=== PATIENT | male | born 1950 | race Caucasian/White ===

== ENCOUNTER 2018-03-08 02:48 | Inpatient (IN) ==
[2018-03-08] MEDS ORDERED: Haloperidol Lactate 5 MG/ML VIAL IVP ONE ×3 (05:39→23:17)
--- NOTE | 2018-03-08 05:41 | Internal Med History&Physical ---
<Shiva Paul - Last Filed: 03/08/18 06:38> Date of Encounter: 03/08/18 Time of Encounter: 05:38 Internal Medicine - H&P: HPI Chief complaint: Altered mental status, sepsis Admitted From: Hospital to Hospital Transfer Plans for Post Hospital Care: Transfer Long-Term Facility History of present illness: Mr. Winston is a 67 year old male with past medical history of COPD, AAA, CAD, DJD, aortic stenosis (s/p TAVR). Patient arrived to [facility] emergency department yesterday via EMS. Patient was accompanied by family at [facility] emergency department. Per [facility] records, family stated that patient had increased confusion since the day prior, has eaten in 24 hours. He fell on the floor on the night of arrival with reported multiple skin tears to bilateral upper extremities. He was confused and very aggressive with staff. Patient's brother Girish was present at bedside after arrival to [facility]. He states that the patient normally does live with his . However, patient's has recently been hospitalized for the past several days here at [place], so patient has been staying with his brother Girish. He states that at baseline, the patient is alert and oriented x3 and is self-sufficient in his ADLs. However, over the past 48 hours, he has been acting very confused, altered, and has not been himself. He was found down earlier in the evening by his brother. Dates that he was down for short period of time, but exact duration is unknown. He is unsure but does not think that the patient hit his head when he was found down. Review of systems unobtainable due to patient's altered mental status. Vitals reported at [facility] were as follows: temperature 97.2, respirations 18, blood pressure 118/72, heart rate 80, oxygen saturation 96% on room air Labs and imaging at [facility] emergency department were as follows: CBC showed WBC of 13.6 BMP showed sodium 123, chloride 87, creatinine 1.03 AST 54 ALT to 36 ALP 145 CPK 739 CKMB: 12 troponin 0.128 lactic acid 2.[address] of the head without contrast showed "no evidence of intracranial abnormality, small amount of fluid in mastoid air cells possibly representing mastoiditis". CT of the lumbar spine showed "no acute fracture dislocation, status post laminectomy at L5 without visualized complication, no pre-vertebral soft tissue swelling to suggest acute soft tissue injury" Blood cultures were collected at [facility] emergency department At [facility] emergency department, he received 3 L boluses of normal saline, 2.5 mg total of Ativan, one dose Zosyn, one dose Rocephin, one dose vancomycin, one dose Zofran. Vitals after arriving to [place]: temperature 98.5, pulse 100, respirations 20, blood pressure 152/77, oxygen saturation 91% on room air Past Med Surg Social Fam HX - Past Medical History Medical history: COPD, hyperlipidemia, hypertension, myocardial infarction, valvular heart disease Additional medical history: BLACK LUNG Psychiatric history: bipolar - Past Surgical History Surgical History: angioplasty/stent, herniorrhaphy, knee replacement Additional surgical history: AAA. L shoulder. b/l knees - Social History Smoking Status: Former smoker Smokeless Tobacco Status: No Alcohol use: occasionally Drug use: none - Family History Mother Living Status: Father Living Status: Hx Family Respiratory Disorders: Yes Internal Medicine - H&P: Meds Albuterol Neb [Proventil Neb] 2.5 mg IH QID PRN 10/14/15 [History] Albuterol Sulfate [Albuterol Inhaler] 2 puff IH QID PRN 10/14/15 [History] Aspirin Enteric Coated [Aspirin EC] 81 mg PO DAILY 10/14/15 [History] BuPROPion [Wellbutrin] 75 mg PO DAILY 10/14/15 [History] Budesonide/Formoterol 80/4.5 [Symbicort 80/4.5] 1 puff IH BIDR 10/14/15 [History] Metoprolol XL (24 HR) Succ [Toprol Xl] 0.5 tab PO DAILY 10/14/15 [History] Nitroglycerin [Nitrostat] 0.4 mg SL AD PRN 10/14/15 [History] Omeprazole [PriLOSEC] 20 mg PO DAILY 10/14/15 [History] Simvastatin [Zocor] 20 mg PO HS 10/14/15 [History] Tiotropium [Spiriva] 18 mcg IH DAILY 10/14/15 [History] predniSONE [PredniSONE] 5 mg PO DAILY 10/14/15 [History] Hydrochlorothiazide [Microzide] 12.5 mg PO DAILY 09/05/17 [History] Meloxicam [Mobic] 7.5 mg PO DAILY 09/05/17 [History] Roflumilast [Daliresp] 500 mcg PO DAILY 09/05/17 [History] Allergy/AdvReac Type Severity Reaction Status Date / Time No Known Allergies Allergy Verified 11/02/17 23:08 ROS unobtainable: due to mental status All Systems PM: A 10-system review of systems was performed and is negative for pertinent findings except as documented above in the HPI. - Constitutional General appearance: Present: A&O X 0, no acute distress, underweight. Absent: severe distress, answers questions appropriately Exam: Patient laying in the bed sleeping, appears to be in no acute distress. He is overall disheveled looking, very thin, appears to have very dry skin. - Head Head exam: Present: atraumatic, normocephalic - ENT ENT exam: Present: mucous membranes dry Additional comments: Right ear appear to have a significant amount of cerumen - Respiratory Respiratory exam: Present: decreased breath sounds. Absent: rales, respiratory distress, wheezes, tachypnea - Cardiovascular Cardiovascular exam: Present: RRR, +S1, +S2. Absent: systolic murmur, tachycardia - GI/Abdominal GI/Abdominal exam: Present: diminished bowel sounds, soft. Absent: guarding, tenderness - Extremities Exam Extremities exam: Absent: cyanotic, mottling, pedal edema Additional comments: Extremities overall appear to have dry skin, redness present at the bottom of the feet. Normal capillary refill. - Neurological Exam Additional comments: Alert and oriented x0. no acute distress. appears to be resting comfortably. - Skin Skin exam: Present: dry, intact, pallor. Absent: cyanosis Internal Med - H&P Results - Labs CBC & Chem 7: 03/08/18 06:12 - Assessment and plan (1) Encephalopathy Current Visit: Yes Status: Acute Assessment and plan: 67-year-old male presents as a transfer from [facility] emergency department due to altered mental status. History obtained from his brother, who states that patient is alert and oriented x3 at baseline, normally lives with his , does not require any help with ADLs. Over the past 48 hours, patient has become increasingly confused, agitated, combative. Of note, patient's is hospitalized here at [place]. Alcohol levels at [facility] were unremarkable. Head CT at [facility] unremarkable Etiology unclear at this time. could be due to severe sepsis vs. metabolic (hyponatremia) vs. iatrogenic. Plan: Tineo, B12, Acetaminophen, salicylate, UDS check troponin levels. hold HCTZ in setting of hyponatremia reconcile home meds when verified. (2) Severe sepsis Current Visit: Yes Status: Acute Assessment and plan: HR 100, WBC at [facility]: 13.6, lactic acid 2.6 at [facility]. Etiology Unclear at this time. specifically, There is concern for Endocarditis. patient has Hx of with TAVR in 10/2017. He became septic a few weeks later and had to be on IV antibiotics. This history was obtained from his brother girish. Patient received 3 fluid boluses, vancomycin, Zosyn, Rocephin at [facility] emergency department. Plan: repeat lactic acid blood cultures x2, urinalysis with culture pending EV echocardiogram Rapid flu swab check CT chest vancomycin, zosyn day 1 (3) Hyponatremia Current Visit: Yes Status: Acute Assessment and plan: Sodium at [facility] was noted to be 123- Euvolemic hyponatremia Our records indicate that his last sodium was 133 in 10/2017. Etiology unclear at this time. Differentials include SIADH, malignancy, HCTZ use, psychogenic polidipsia, etc. Plan: urine Na, urine osm pending CT chest pending to rule out malignancy check ionized calcium to check for hypercalcemia of malignancy (4) Elevated troponin Current Visit: No Status: Acute Assessment and plan: Troponin at [facility] was 0.128. Patient does not report chest pain, but his history is unreliable due to acute encephalopathy. He does have history of coronary artery disease. Plan: trend troponins q6H EKG EV echocardiogram pending (5) Coronary artery disease Current Visit: No Status: Chronic Assessment and plan: Restart home medications once verified Qualifiers: Coronary Disease-Associated Artery/Lesion type: cheesh-na artery [place] vs. transplanted heart: cheesh-na heart Associated angina: without angina Qualified Code(s): I25.10 - Atherosclerotic heart disease of cheesh-na coronary artery without angina pectoris (6) History of abdominal aortic aneurysm (AAA) Current Visit: Yes Status: Chronic (7) Status post transcatheter aortic valve replacement Current Visit: Yes Status: Chronic (8) DVT prophylaxis Current Visit: No Status: Acute Assessment and plan: Heparin SQ - Time Spent With Patient Total time spent is greater than 50% in coordination of care (as documented) at patient's floor/unit and/or counseling patient: <Thong Neff - Last Filed: 03/08/18 07:07> Date of Encounter: 03/08/18 Time of Encounter: 06:20 ROS unobtainable: due to mental status - Constitutional Vitals: Temp Pulse Resp BP Pulse Ox 98.5 F 100 20 152/77 91 03/08/18 05:53 03/08/18 05:53 03/08/18 05:53 03/08/18 05:53 03/08/18 05:53 General appearance: Present: A&O X 0 Exam: sleeping; moving about, responds to painful/loud stimuli; confused - Eye Eye exam: Present: PERRL. Absent: scleral icterus - ENT ENT exam: Present: mucous membranes dry - Neck Neck exam general surgery: Present: full ROM, supple. Absent: lymphadenopathy, tenderness, nuchal rigidity, thyromegaly - Respiratory Respiratory exam: Present: prolonged expiratory phase, rhonchi. Absent: decreased breath sounds, rales, wheezes - Cardiovascular Cardiovascular exam: Present: distant heart sounds, RRR, +S1, +S2. Absent: diastolic murmur, systolic murmur - GI/Abdominal GI/Abdominal exam: Present: diminished bowel sounds, soft. Absent: hepatomegaly, splenomegaly - Extremities Exam Extremities exam: Present: warm, radial pulses palpable and symmetrical. Absent: mottling, pedal edema, tenderness - Back Exam Back exam: Absent: CVA tenderness (L), CVA tenderness (R) - Neurological Exam Neurological exam: Present: altered, no focal deficits (no gross deficits; moves all four extremities) - Skin Skin exam: Present: dry, intact, warm Additional comments: multiple scrape wounds/abrasions on his arms Internal Med - H&P Results - Labs CBC & Chem 7: 03/08/18 06:12 03/08/18 06:12 Labs: Short CBC 03/08/18 Range/Units 06:12 WBC 9.9 (4.3-11.1) K/mcL Hgb 12.4 L (12.9-16.9) g/dL Hct 36.6 L (37.5-50.1) % Plt Count 303 (140-400) K/mcL Neutrophils # 7.6 (1.6-8.9) K/mcL BMP 03/08/18 06:12 Sodium 125 L Potassium 4.1 Chloride 96 L Carbon Dioxide 18 L BUN 18 Creatinine 0.73 Glucose 90 Calcium 8.3 L Cardiac Enzymes 03/08/18 Range/Units 06:12 Troponin I 0.38 H* (< 0.04) ng/mL Liver Function 03/08/18 Range/Units 06:12 Total Bilirubin 0.6 (0.3-1.0) mg/dL AST 39 (13-39) Units/L ALT 21 (7-52) Units/L Alkaline Phosphatase 96 (34-104) Units/L Albumin 3.4 L (3.5-5.7) g/dL - Time Spent With Patient Total time spent is greater than 50% in coordination of care (as documented) at patient's floor/unit and/or counseling patient: - Attending Attestation I discussed the patient [place], past medical history, lab data and imaging studies at [facility], and plan of care with Dr. Paul. I then saw, examined patient, and met with patient's brother. Prior to 2 days ago, patient was at his baseline cognitive state and functioning normally. However, over last 2 days, he has had a rapid decline as detailed above. Based upon limited history, lab data and imaging data from [facility], and then my discussions with the patient's brother, I am concerned about sepsis in addition to possible endocarditis. His brother tells me that he had TAVR procedure performed this summer at [facility] and then later developed sepsis about a week later. He was treated with IV antibiotics for about 1 month thereafter. He now has clinical findings concerning for sepsis as well as altered mental status. I agree with the blood cultures and antibiotics chosen thus far. I recommend surface echocardiogram with likely TRACY thereafter especially if there is a positive blood culture. Further workup and treatment will depend upon his clinical course and response to care. Other than my comments above and noted exam findings, I agree with Dr. Paul's assessment and plan.
[2018-03-08] MEDS ORDERED: Haloperidol Lactate 5 MG/ML VIAL ONE (05:42)
[2018-03-08] MEDS ORDERED: Naloxone 0.4 MG/ML INJ IVP PRN (05:54)
[2018-03-08 06:30] LABS: Basophils % 0.4 %; Eosinophils # 0.1 K/mcL (0.0-0.6); Eosinophils % 0.6 %; Hematocrit 36.6 % (37.5-50.1); Hemoglobin 12.4 g/dL (12.9-16.9); Immature Granulocytes % 1.1 % (0-4); Lymphocytes # 0.9 K/mcL (0.6-4.6); Lymphocytes % 9.4 %; Mean Corpuscular HGB Conc 33.9 g/dL (31.6-35.5); Mean Corpuscular Hemoglobin 28.4 pg (28.0-33.3); Mean Corpuscular Volume 83.9 fL (83.0-100.0); Mean Platelet Volume 8.2 fL (9.4-12.4); Monocytes # 1.1 K/mcL (0.0-1.3); Monocytes % 11.4 %; Neutrophils # 7.6 K/mcL (1.6-8.9); Platelet Count 303 K/mcL (140-400); Red Blood Count 4.36 M/mcL (4.19-5.50); Red Cell Distribution Width 13.2 % (11.5-14.5); Segmented Neutrophils % 77.1 %
[2018-03-08 06:46] LABS: Acetaminophen < 10 mcg/mL (10-20); Salicylate < 2.5 mg/dL (15.0-30.0)
[2018-03-08 06:49] LABS: Alanine Aminotransferase 21 Units/L (7-52); Albumin 3.4 g/dL (3.5-5.7); Albumin/Globulin Ratio 1.2 (1.1-2.2); Alkaline Phosphatase 96 Units/L (34-104); Aspartate Amino Transferase 39 Units/L (13-39); BUN/Creatinine Ratio 25 (6-26); Bilirubin,Total 0.6 mg/dL (0.3-1.0); Blood Urea Nitrogen 18 mg/dL (8-23); Calcium 8.3 mg/dL (8.6-10.3); Carbon Dioxide 18 mEq/L (23-29); Chloride 96 mEq/L (98-107); Globulin 2.8 g/dL (2.4-3.5); Glucose 90 mg/dL (70-105); Magnesium 1.9 mg/dL (1.6-2.6); Osmolality,Calculated 261 (280-300); Phosphorous 2.3 mg/dL (2.7-4.5); Potassium 4.1 mEq/L (3.5-5.1); Sodium 125 mEq/L (136-145); Total Protein 6.2 g/dL (6.4-8.9); eGFR For Non-African Americans > 60 (> 60)
[2018-03-08 06:53] LABS: Troponin I 0.38 ng/mL (< 0.04)
[2018-03-08] MEDS: *HR* Heparin 5,000 UNIT/ML VIAL SQ SCH ×2 (06:58→17:37)
[2018-03-08] MEDS ORDERED: Vancomycin 1 EACH in 0.9 % Sodium Chloride 250 ML IVPB SCH (07:00)
[2018-03-08 07:13] LABS: Folate 15.3 ng/mL (3.0-16.0)
--- NOTE | 2018-03-08 09:35 | Internal Med Progress Note ---
Hospitalist Progress Note - Encounter Date of Encounter: 03/08/18 Time of Encounter: 09:15 - Subjective Interval History: Patient seen and examined this morning. Admitted for AMS. Still altered and agitated. not able to provide and history or complains. Afebrile, tachy. - Exam Vitals: Temp Pulse Resp BP Pulse Ox 98.5 F 100 20 152/77 91 03/08/18 05:53 03/08/18 05:53 03/08/18 05:53 03/08/18 05:53 03/08/18 05:53 Exam: General: In mild distress. Altered and confused. Slightly agitated. Respiratory exam: CTAB. no accessory muscle use, rales, rhonchi, wheezes Cardiovascular exam: Tachycardic, +S1, +S2. no murmur, gallop, rubs. GI/Abdominal exam: Non-tender, Non-distended, normal bowel sounds, soft, no p eritoneal signs. Extremities exam: full ROM, no pedal edema, pulses palpable in b/l lower extremities. no calf tenderness. Rt foot is red and warm, maximally near toes. Does not appear to cause pain but patient is altered. No joint swelling/effusion appreciated. Neurological exam: CN II-XII intact, AO X3, no focal deficits. no pronater drift, facial droop, speech deficit Skin exam: No skin rash, ulcer, purpura or ecchymosis. s - Summary of Assessment and Plan Summary of Assessment and Plan: Encephalopathy - Alcohol levels at [facility] were unremarkable. - Head CT at unremarkable - Possibly from sepsis vs. metabolic - [place], B12 normal. Acetaminophen, salicylate negative. f/u UDS - troponin levels elevated at 0.38. trend troponin. BP stable. - hold HCTZ in setting of hyponatremia - will reconcile home meds when verified. Severe sepsis - s/p 3 Lit - Etiology Unclear at this time. concern for Endocarditis. Also possible cellulitis vs septic arthitis. Will get CT of Rt foot. - c/w vancomycin, Zosyn. - lactic acid 1. Previously 2.6 - f/u blood cultures x2, urinalysis with culture pending - f/u echocardiogram - f/u Rapid flu swab and CT chest Hyponatremia - Possibly HCTZ use or hyovolemia - f/u Urine Na, urine osm pending. Will place patel an obtain sample - CT chest pending to rule out malignancy Elevated troponin - Troponin at [facility] was 0.128. 0.38 this morning. - could not offer complains. h/o CAD - EKG without any ischemic changes - f/u EV echocardiogram pending Coronary artery disease - Restart home medications once verified - Time Spent with Patient Total time spent is greater than 50% in coordination of care (as documented) at patient's floor/unit and/or counseling patient: Internal Medicine: Result - Labs CBC & Chem 7: 03/08/18 06:12 03/08/18 06:12 Labs: Short CBC 03/08/18 Range/Units 06:12 WBC 9.9 (4.3-11.1) K/mcL Hgb 12.4 L (12.9-16.9) g/dL Hct 36.6 L (37.5-50.1) % Plt Count 303 (140-400) K/mcL Neutrophils # 7.6 (1.6-8.9) K/mcL BMP 03/08/18 06:12 Sodium 125 L Potassium 4.1 Chloride 96 L Carbon Dioxide 18 L BUN 18 Creatinine 0.73 Glucose 90 Calcium 8.3 L Cardiac Enzymes 03/08/18 Range/Units 06:12 Troponin I 0.38 H* (< 0.04) ng/mL Liver Function 03/08/18 Range/Units 06:12 Total Bilirubin 0.6 (0.3-1.0) mg/dL AST 39 (13-39) Units/L ALT 21 (7-52) Units/L Alkaline Phosphatase 96 (34-104) Units/L Albumin 3.4 L (3.5-5.7) g/dL Consult Discharge Plan - Plan [facility]Primary Care Provider[facility] -
[2018-03-08] MEDS ORDERED: 0.9 % Sodium Chloride 500 ML IVC ONE (09:42)
[2018-03-08] MEDS ORDERED: Ketorolac 30 MG/ML VIAL IM ONE (09:43)
[2018-03-08] MEDS ORDERED: Ketorolac 30 MG/ML VIAL IVP ONE (10:01)
[2018-03-08] MEDS: Piperacillin/Tazobactam 3.375 GM in 0.9 % Sodium Chloride Mini Bag 100 ML IVPB SCH ×3 (10:05→23:32)
[2018-03-08 11:27] LABS: Bilirubin,Urine Negative (Negative); Blood,Urine Trace (Negative); Clarity,Urine Clear (Clear); Color,Urine Yellow (Yellow); Glucose,Urine (UA) Normal (Normal); Ketones,Urine 80 mg/dL (Negative); Leukocyte Esterase,Urine Negative (Negative); Nitrite,Urine Negative (Negative); PH,Urine 5.5 pH Units (5.0-8.0); Protein,Urine Negative (Neg-Trace); Specific Gravity,Urine 1.015 (1.010-1.025); Urobilinogen,Urine Normal (Normal)
[2018-03-08 11:35] LABS: Amphetamine Screen,Urine Negative ng/mL (Cutoff=1000); Barbiturate Screen,Urine Negative ng/mL (Cutoff=200); Benzodiazepines Screen,Urine Negative ng/mL (Cutoff=200); Cannabinoid Screen,Urine Negative ng/mL (Cutoff = 50); Cocaine Screen,Urine Negative ng/mL (Cutoff= 300); Opiate Screen,Urine Negative ng/mL (Cutoff=300); Phencyclidine Screen,Urine Negative ng/mL (Cutoff=25)
[2018-03-08 11:46] LABS: Amorphous Sediment,Urine Few (Few); WBC,Urine 0-3 per hpf (0-3)
[2018-03-08] MEDS: 0.9 % Sodium Chloride 1,000 ML IVC SCH ×2 (11:48→23:31)
[2018-03-08] MEDS ORDERED: Haloperidol Lactate 5 MG/ML VIAL IM ONE (11:57)
[2018-03-08] MEDS ORDERED: *HR* Dextrose 50 % in Water (Syg) 50 ML SYRINGE IVP ONE (12:20)
--- NOTE | 2018-03-08 14:33 | Cardiology Consult Note ---
<AlejandroPujajake Romero - Last Filed: 03/08/18 14:30> Date of Encounter: 03/08/18 Time of Encounter: 14:30 Assessment and Plan (1) Elevated troponin Current Visit: No Status: Acute Per cardiology: -Troponins flat and adynamic in the setting of sepsis, encephalopathy. -No acute ischemic ECG changes. -No chest pain reported. -TTE pending. -[facility] 08/2017 with patent stents, otherwise mild disease. -[facility] 05/2017 with LVEF 60-65%, ayssemetric septal hypertrophy, mild DD, probable severe , no segmental wall motion abnormalities. -Troponins demand ischemia in the setting of above. -If LVEF remains preserved on repeat TTE, no further cardiac testing warranted. -When able to take oral medications, recommend restarting patient's ASA, statin, BB. (2) Coronary artery disease Current Visit: No Status: Chronic Per cardiology: -Known CAD s/p previous PCI. -[facility] 08/2017 with patent stents, otherwise mild CAD. -See elevated troponin as above. Qualifiers: Coronary Disease-Associated Artery/Lesion type: [place] artery [place] vs. transplanted heart: [place] heart Associated angina: without angina Qualified Code(s): I25.10 - Atherosclerotic heart disease of [place] coronary artery without angina pectoris (3) Status post transcatheter aortic valve replacement Current Visit: Yes Status: Chronic Per cardiology -Recent TAVR 10/2017 [place]. -TTE pending. Discussion w patient/family: The assessment and plan as outlined above was discussed with the patient who expressed understanding and agreement. All questions were answered. Thank you for involving us in the care of your patient. Please call with any questions. Discussed and reviewed with History of Present Illness Consult date: 03/08/18 Requesting physician: Shiva Paul Consult reason: elevated troponin Chief complaint: altered mental status History of present illness: Mr. Winston is a 67 year old male with a relevant past medical history of COPD, CAD s/p previous PCI, Aortic stenosis s/p TAVR, AAA who presented to [facility] with complaints of confusion per family. Of note, patient is lethargic in bed, not answering questions. Majority of HPI obtained from medical records. Per notes, family noticed increased confusion. No reported chest pain. Past Med Surg Social Fam HX - Past Medical History Attestation: Yes The following information was validated with the patient. Source: old records reviewed Medical history: COPD, hyperlipidemia, hypertension, myocardial infarction, valvular heart disease Additional medical history: BLACK LUNG Psychiatric history: bipolar - Past Surgical History Surgical History: angioplasty/stent, herniorrhaphy, knee replacement Additional surgical history: AAA. L shoulder. b/l knees - Social History Smoking Status: Former smoker Smokeless Tobacco Status: No Alcohol use: occasionally Drug use: none - Family History Mother Living Status: Father Living Status: Hx Family Respiratory Disorders: Yes Medications and Allergies Albuterol Sulfate [Albuterol Inhaler] 2 puff IH QID PRN 10/14/15 [History] Aspirin Enteric Coated [Aspirin EC] 81 mg PO DAILY 10/14/15 [History] Omeprazole [PriLOSEC] 20 mg PO DAILY 10/14/15 [History] Simvastatin [Zocor] 20 mg PO HS 10/14/15 [History] Meloxicam [Mobic] 7.5 mg PO DAILY 09/05/17 [History] Roflumilast [Daliresp] 500 mcg PO DAILY 09/05/17 [History] Budesonide/Formoterol 160/4.5 [Symbicort 160/4.5] 2 puff IH BIDR 03/08/18 [History] Ciprofloxacin/Dex *EAR* Susp [Ciprodex *EAR* Susp] 4 drop BOTH EARS BID 03/08/18 [History] Ipratropium/Albuterol Neb [Duoneb] 3 ml IH Q6HR PRN 03/08/18 [History] Metoprolol [Lopressor] 25 mg PO DAILY 03/08/18 [History] hydroCHLOROthiazide [Hydrochlorothiazide] 12.5 mg PO DAILY 03/08/18 [History] Allergy/AdvReac Type Severity Reaction Status Date / Time No Known Allergies Allergy Verified 03/08/18 10:58 All Systems Review: The remainder of the systems were reviewed and are negative - Cardiovascular Cardiovascular: as per HPI - Neurological Neurological: other (AMS) Physical Examination Vital Signs, Last 4 Hours Temp Pulse Resp BP 03/08/18 11:29 98.3 F 102 18 160/76 General: Other (Opens eyes to tactile stimuli. Did not answer questions. ) HEENT: Atraumatic, Normocephaly, Mucus Membranes Moist Neck: No JVD, Normal carotid pulses Cardiac: Reg Rate and Rhythm, Normal S1 and S2, No Murmur Lungs: Other (Lung sounds coarse throughout. ) Neuro: Other (Opens eyes to tactile stimuli. ) Abdomen: Soft Skin: No rashes noted on visualized skin Musculoskeletal: No Chest Wall Tenderness Extremities: No Clubbing, No Cyanosis, No Edema, Normal Pulses Results 03/08/18 06:12 03/08/18 06:12 Lab Results Active Medications Heparin Sodium (Porcine) (Heparin) 5,000 unit SQ Q12HCO [facility] Stop: 09/07/18 06:16 Last Admin: 03/08/18 06:58 Dose: 5,000 unit Piperacillin Sod/Tazobactam (Sod 3.375 gm/ Sodium Chloride) 100 mls @ 25 mls/hr IVPB Q8HR [facility] Stop: 09/07/18 08:01 Last Admin: 03/08/18 10:05 Dose: 25 mls/hr Vancomycin HCl 1 each/ Sodium (Chloride) 250 mls @ 167 mls/hr IVPB RPHPROT [facility]; Protocol Stop: 09/07/18 07:01 Last Admin: 03/08/18 10:20 Dose: 167 mls/hr Vancomycin HCl 1,000 mg/ (Sodium Chloride) 250 mls @ 167 mls/hr IVPB Q12H [facility]; Protocol Stop: 09/07/18 08:01 Last Admin: 03/08/18 10:22 Dose: Not Given Sodium Chloride (0.9 % Sodium Chloride) 1,000 mls @ 100 mls/hr IVC .Q10H [facility] Stop: 09/07/18 09:46 Last Admin: 03/08/18 11:48 Dose: 100 mls/hr Naloxone HCl (Narcan) 0.4 mg IVP Q2MIN PRN PRN Reason: SEE COMMENTS Stop: 09/07/18 05:55 Laboratory Tests 03/08/18 03/08/18 03/08/18 06:12 06:12 10:25 Hgb 12.4 L Creatinine 0.73 Troponin I 0.38 H* 0.28 H* 03/08/18 03/08/18 11:38 12:52 Hgb Creatinine Troponin I 0.33 H* 0.34 H* - Imaging and Cardiology Chest Xray: report reviewed Echo: report reviewed Cardiac cath: report reviewed - EKG Interpretation EKG results cardiology: personally reviewed (ECG with SR, HR 83.), other (Telemetry reviewed with average HR previous 12 hours noted to be 95, SR. Frequent PACs noted.) Consult Discharge Plan - Plan [facility]errals[facility] Care Provider[facility] - 03/21/18 1:45 pm <Shashank Prado - Last Filed: 03/08/18 15:36> Date of Encounter: 03/08/18 - Attending Attestation I have personally performed a face to face evaluation on this patient. I have reviewed and agree with the documented findings and care plan as documented by the PLATFORM ST[employer]ER. History and Exam by me shows: 67-year-old female with history of CAD with recent cardiac catheter showing mild nonobstructive disease. Severe aortic stenosis status post TAVR, admitted for sepsis of unclear source. Elevated troponin likely NSTEMI secondary to demand ischemia from sepsis. I agree with trending troponin. Blood cultures and antibiotics. TTE and possible TRACY to rule out infective endocarditis. Thanks, Shashank Prado MD Assessment and Plan Discussion w patient/family: The assessment and plan as outlined above was discussed with the patient and/or family members who expressed understanding and agreement. All questions were answered. Thank you for involving us in the care of your patient. Please call with any questions. History of Present Illness History of present illness: Mr. Winston is a 67 year old male All Systems Review: The remainder of the systems were reviewed and are negative Results 03/08/18 06:12 03/08/18 06:12 Lab Results 03/08/18 03/08/18 03/08/18 06:12 06:12 10:25 WBC 9.9 Hgb 12.4 L Hct 36.6 L Plt Count 303 Sodium 125 L Potassium 4.1 Chloride 96 L Carbon Dioxide 18 L BUN 18 Creatinine 0.73 Glucose 90 Calcium 8.3 L Magnesium 1.9 Total Bilirubin 0.6 AST 39 ALT 21 Alkaline Phosphatase 96 Troponin I 0.38 H* 0.28 H* 03/08/18 03/08/18 11:38 12:52 WBC Hgb Hct Plt Count Sodium Potassium Chloride Carbon Dioxide BUN Creatinine Glucose Calcium Magnesium Total Bilirubin AST ALT Alkaline Phosphatase Troponin I 0.33 H* 0.34 H*
[2018-03-09] MEDS ORDERED: Haloperidol Lactate 5 MG/ML VIAL IVP ONE (01:59)
[2018-03-09 04:54] LABS: Basophils # 0.1 K/mcL (0.0-0.2); Basophils % 0.6 %; Eosinophils # 0.1 K/mcL (0.0-0.6); Eosinophils % 1.4 %; Hematocrit 33.6 % (37.5-50.1); Hemoglobin 11.1 g/dL (12.9-16.9); Immature Granulocytes % 0.7 % (0-4); Lymphocytes # 0.7 K/mcL (0.6-4.6); Lymphocytes % 6.5 %; Mean Corpuscular Hemoglobin 28.2 pg (28.0-33.3); Mean Corpuscular Volume 85.3 fL (83.0-100.0); Mean Platelet Volume 8.6 fL (9.4-12.4); Monocytes % 9.6 %; Neutrophils # 8.3 K/mcL (1.6-8.9); Platelet Count 273 K/mcL (140-400); Red Blood Count 3.94 M/mcL (4.19-5.50); Red Cell Distribution Width 13.3 % (11.5-14.5); Segmented Neutrophils % 81.2 %
[2018-03-09 05:09] LABS: BUN/Creatinine Ratio 12 (6-26); Blood Urea Nitrogen 8 mg/dL (8-23); Calcium 8.2 mg/dL (8.6-10.3); Carbon Dioxide 17 mEq/L (23-29); Chloride 100 mEq/L (98-107); Glucose 64 mg/dL (70-105); Osmolality,Calculated 266 (280-300); Potassium 3.9 mEq/L (3.5-5.1); Sodium 130 mEq/L (136-145); eGFR For Non-African Americans > 60 (> 60)
[2018-03-09] MEDS: *HR* Heparin 5,000 UNIT/ML VIAL SQ SCH ×2 (05:55→16:21)
[2018-03-09] MEDS: Piperacillin/Tazobactam 3.375 GM in 0.9 % Sodium Chloride Mini Bag 100 ML IVPB SCH ×3 (08:01→23:16)
[2018-03-09] MEDS ORDERED: 0.9 % Sodium Chloride 1,000 ML IVC ONE (08:40)
[2018-03-09] MEDS: D5% in 0.9% NACL 1,000 ML IVC SCH (09:02)
[2018-03-09] MEDS ORDERED: Haloperidol Lactate 5 MG/ML VIAL IVP SCH (09:30)
[2018-03-09] MEDS: Ipratropium/Albuterol Neb 3 ML IH SCH ×3 (11:26→21:09)
--- NOTE | 2018-03-09 12:42 | Event Note ---
Date of Encounter: 03/09/18 Time of Encounter: 12:40 - Cardiology Event Note Awaiting echocardiogram for further recommendations. TTE has not been completed due to patient's confusion/combative behavior. Again troponins demand ischemia. Please re-consult if any significant abnormalities on TTE. Cardiology will sign off and will follow in outpatient setting. Follow up set.
--- NOTE | 2018-03-09 13:21 | Internal Med Progress Note ---
Hospitalist Progress Note - Encounter Date of Encounter: 03/09/18 Time of Encounter: 08:56 - Subjective Interval History: Patient seen and examined this morning. Admitted for AMS. More alert and less agitated. Follows simple command. Does not offer complains. Afebrile, tachy. - Exam Vitals: Temp Pulse Resp BP Pulse Ox 97.9 F 113 20 144/99 95 03/09/18 11:00 03/09/18 11:00 03/09/18 11:29 03/09/18 11:00 03/09/18 11:29 Exam: General: In no distress. confused. arousable Respiratory exam: CTAB. no accessory muscle use Cardiovascular exam: Tachycardic, +S1, +S2. no murmur, gallop, rubs. GI/Abdominal exam: Non-tender, Non-distended, normal bowel sounds, soft, no peritoneal signs. Extremities exam: full ROM, no pedal edema, pulses palpable in b/l lower extremities. no calf tenderness. Rt foot is red and warm, maximally near toes. Does not appear to cause pain but patient is altered. No joint swelling/effusion appreciated. Neurological exam: AOx0, Moving all extremities, opening eye to command. Skin exam: Rt foot rash as above. No other skin rash, ulcer, purpura or ecchymosis. s - Summary of Assessment and Plan Summary of Assessment and Plan: Encephalopathy - Alcohol levels at [facility] were unremarkable. - Head CT at unremarkable - Possibly from sepsis - Tineo, B12 normal. Acetaminophen, salicylate, UDS negative. - Mentation slightly improved. sepsis - s/p 4 Lit. Still negative balance. Will give 1 lit bolus and start maintainence fluid. - Low suspicious for Endocarditis. CT of Rt foot without evidence of septic arthritis or abscess. Likely from cellulitis of Rt foot. f/u ECHO. - lactic acid 2.6 to 1 after IVF - blood cultures NGTD, urinalysis and culture negative. - f/u pending echocardiogram - Rapid flu swab negative - CT chest without focal consolidation. - c/w vancomycin, Zosyn. Hyponatremia - Improving - hold HCTZ in setting of hyponatremia - Likely from dehydration. - c/w IVF - CT chest with unchanged 4 mm RLL nodule. Elevated troponin - Troponin at [facility] was 0.128. 0.3 - could not offer complains. h/o CAD - EKG without any ischemic changes - Likely demand ischemia. - f/u EV echocardiogram pending Coronary artery disease - Restart home medications once verified and able to take PO. - Time Spent with Patient Total time spent is greater than 50% in coordination of care (as documented) at patient's floor/unit and/or counseling patient: Internal Medicine: Result - Labs CBC & Chem 7: 03/09/18 03:59 03/09/18 03:59 Labs: Short CBC 03/09/18 Range/Units 03:59 WBC 10.2 (4.3-11.1) K/mcL Hgb 11.1 L (12.9-16.9) g/dL Hct 33.6 L (37.5-50.1) % Plt Count 273 (140-400) K/mcL Neutrophils # 8.3 (1.6-8.9) K/mcL BMP 03/09/18 03:59 Sodium 130 L Potassium 3.9 Chloride 100 Carbon Dioxide 17 L BUN 8 Creatinine 0.67 L Glucose 64 L Calcium 8.2 L Cardiac Enzymes 03/08/18 03/08/18 Range/Units 12:52 18:03 Troponin I 0.34 H* 0.24 H* (< 0.04) ng/mL - Impressions Impressions Chest CT 03/08/18 08:30 IMPRESSION: 1. Unchanged 4 mm solid nodule right lower lobe. 12 month follow-up if patient has high risk factors for lung cancer otherwise no specific follow-up. 2. Interval stent graft repair of ascending thoracic aorta aneurysm. D/ / Felice Betts MD / Felice Betts MD Interpreting Provider: Felice Betts MD Foot CT 03/08/18 08:30 IMPRESSION: 1. Findings most compatible with severe advanced osteoarthritis of the 1st MTP joint. No significant effusion identified within limits of the exam. Osteoarthritic changes also identified at the 2nd and 3rd MTP joints and 1st interphalangeal joint as well as at the hindfoot and midfoot. 2. Mild soft tissue edema without organized drainable fluid collection identified. No subcutaneous gas evident. RECOMMENDATIONS: If there is continued clinical suspicion for osteomyelitis, MRI of the forefoot could be obtained for further evaluation. D/ / Otis Heaton MD / Otis Heaton MD Interpreting Provider: Otis Heaton MD Consult Discharge Plan - Plan Referrals: [place],PCP [Primary Care Provider] - 03/21/18 1:45 pm (red team [facility])
[2018-03-09] MEDS: 0.9 % Sodium Chloride 1,000 ML IVC SCH (16:07)
[2018-03-09] MEDS ORDERED: Perflutren Lipid Microsphere 1.3 ML in 0.9 % Sodium Chloride 8.7 ML IVP ONE (19:05)
[2018-03-10] MEDS: D5% in 0.9% NACL 1,000 ML IVC SCH ×2 (00:37→15:32)
[2018-03-10] MEDS: 0.9 % Sodium Chloride 1,000 ML IVC SCH ×2 (01:05→15:24)
[2018-03-10] MEDS: Ipratropium/Albuterol Neb 3 ML IH SCH ×4 (03:39→22:49)
[2018-03-10] MEDS: *HR* Heparin 5,000 UNIT/ML VIAL SQ SCH ×2 (05:41→17:08)
--- NOTE | 2018-03-10 08:32 | Internal Med Progress Note ---
Hospitalist Progress Note - Encounter Date of Encounter: 03/10/18 Time of Encounter: 08:26 - Subjective Interval History: Patient seen and examined this morning. alert and oriented now. Wants to leave home. Does not offer complains. Afebrile, tachy and tachypnic. - Exam Vitals: Temp Pulse Resp BP Pulse Ox 98.1 F 107 18 139/95 98 03/10/18 08:15 03/10/18 08:15 03/10/18 08:15 03/10/18 08:15 03/10/18 08:15 Exam: General: In respiratroy distress. AOx3 Respiratory exam: RR of 28. accessory muscle use. Diffuse wheezing and rhonchi Cardiovascular exam: Tachycardic, +S1, +S2. no murmur, gallop, rubs. GI/Abdominal exam: Non-tender, Non-distended, normal bowel sounds, soft, no peritoneal signs. Extremities exam: full ROM, no pedal edema, pulses palpable in b/l lower extremities. no calf tenderness. Rt foot is redess and warm decreasing. Non tender. Neurological exam: AOx3, Moving all extremities, cranial nerves grossly intact. Motor and sensory exam grossly unremarkable Skin exam: Rt foot rash as above. No other skin rash, ulcer, purpura or ecchymosis. s - Summary of Assessment and Plan Summary of Assessment and Plan: COPD exacerbation - c/w duonebs as needed - Start steroids - Start home symbicort Encephalopathy - Alcohol levels at [facility] were unremarkable. - Head CT at unremarkable - Likely from sepsis - Tineo, B12 normal. Acetaminophen, salicylate, UDS negative. - Mentation appears to be back to baseline now. sepsis - s/p 6 Lit. Still negative balance. Will give 1 lit bolus and start maintainenc e fluid. - Low suspicious for Endocarditis. CT of Rt foot without evidence of septic arthritis or abscess. Likely from cellulitis of Rt foot. f/u ECHO. - lactic acid 2.6 to 1 after IVF - blood cultures NGTD, urinalysis and culture negative. - f/u pending echocardiogram - Rapid flu swab negative - CT chest without focal consolidation. - c/w vancomycin, Zosyn. Will switch to PO Bactrim on discharge. Hyponatremia - Improving - hold HCTZ in setting of hyponatremia - Likely from dehydration. - c/w IVF RLL nodule - CT chest with unchanged 4 mm RLL nodule. - f/u Outpatient Elevated troponin - Troponin at [facility] was 0.128. 0.3 - could not offer complains. h/o CAD - EKG without any ischemic changes - Likely demand ischemia. - f/u EV echocardiogram pending Coronary artery disease - start home medications - Time Spent with Patient Total time spent is greater than 50% in coordination of care (as documented) at patient's floor/unit and/or counseling patient: Internal Medicine: Result - Labs CBC & Chem 7: 03/09/18 03:59 03/09/18 03:59 Consult Discharge Plan - Plan Referrals: [place],PCP [Primary Care Provider] - 03/21/18 1:45 pm (red team [facility])
[2018-03-10] MEDS: methylPREDNISolone 125 MG/2 ML VIAL IVP SCH ×2 (09:08→10:23)
[2018-03-10] MEDS: Ipratropium/Albuterol Neb 3 ML IH PRN ×2 (09:15→20:06)
[2018-03-10] MEDS: Budesonide/Formoterol 80/4.5 MDI IH SCH ×2 (09:56→20:06)
[2018-03-10] MEDS: Aspirin Enteric Coated 81 MG Tablet PO SCH (10:18)
[2018-03-10] MEDS: Roflumilast [Daliresp] 500 MCG PO SCH (10:20)
[2018-03-10] MEDS: Piperacillin/Tazobactam 3.375 GM in 0.9 % Sodium Chloride Mini Bag 100 ML IVPB SCH ×2 (10:20→17:05)
[2018-03-10 10:40] LABS: BUN/Creatinine Ratio 7 (6-26); Blood Urea Nitrogen 4 mg/dL (8-23); Calcium 8.5 mg/dL (8.6-10.3); Carbon Dioxide 21 mEq/L (23-29); Chloride 100 mEq/L (98-107); Glucose 133 mg/dL (70-105); Osmolality,Calculated 279 (280-300); Potassium 3.4 mEq/L (3.5-5.1); Sodium 135 mEq/L (136-145); eGFR For Non-African Americans > 60 (> 60)
[2018-03-11] MEDS: Piperacillin/Tazobactam 3.375 GM in 0.9 % Sodium Chloride Mini Bag 100 ML IVPB SCH ×3 (00:07→17:31)
[2018-03-11] MEDS: Ipratropium/Albuterol Neb 3 ML IH SCH ×4 (03:41→21:01)
[2018-03-11] MEDS: *HR* Heparin 5,000 UNIT/ML VIAL SQ SCH ×2 (05:22→17:25)
[2018-03-11 05:25] LABS: BUN/Creatinine Ratio 10 (6-26); Blood Urea Nitrogen 9 mg/dL (8-23); Calcium 8.6 mg/dL (8.6-10.3); Carbon Dioxide 21 mEq/L (23-29); Chloride 104 mEq/L (98-107); Glucose 127 mg/dL (70-105); Osmolality,Calculated 284 (280-300); Potassium 3.3 mEq/L (3.5-5.1); Sodium 137 mEq/L (136-145); eGFR For Non-African Americans > 60 (> 60)
[2018-03-11] MEDS: methylPREDNISolone 125 MG/2 ML VIAL IVP SCH (08:43)
[2018-03-11] MEDS: Aspirin Enteric Coated 81 MG Tablet PO SCH (08:43)
[2018-03-11] MEDS: Roflumilast [Daliresp] 500 MCG PO SCH (08:46)
--- NOTE | 2018-03-11 09:04 | Electrocardiograph Report ---
[place] [id number] Test Date: 2018-03-08 Pat Name: Hollis Winston Department: 110 Room: 2N14 Gender: M Summer Analyst: JOHANNA : 1950 Requested By: Shiva Paul Order Number: [id number] Reading MD: Sonia Estrada Measurements Intervals [place] Rate: 83 P: 67 [facility]: 156 QRS: -17 QRSD: 85 T: 26 QT: 343 QTc: 383 Interpretive Statements SINUS RHYTHM WITH SINUS ARRHYTHMIA NONSPECIFIC ST-WAVE ABNORMALITY Electronically Signed On 03-11-2018 9:02:11 EST by Sonia Estrada
[2018-03-11] MEDS: Budesonide/Formoterol 80/4.5 MDI IH SCH ×2 (09:12→21:01)
--- NOTE | 2018-03-11 14:55 | Internal Med Progress Note ---
Hospitalist Progress Note - Encounter Date of Encounter: 03/11/18 Time of Encounter: 12:36 - Subjective Interval History: Patient seen and examined this morning. alert and oriented now. Wants to go home. Afebrile, tachy and tachypnic. - Exam Vitals: Temp Pulse Resp BP Pulse Ox 98.9 F 89 22 119/85 95 03/11/18 11:32 03/11/18 13:08 03/11/18 13:08 03/11/18 11:32 03/11/18 13:08 Exam: General: In mild respiratroy distress. AOx3 Respiratory exam: RR of 22. Has some accessory muscle use. Diffuse wheezing and rhonchi Cardiovascular exam: Tachycardic, +S1, +S2. no murmur, gallop, rubs. GI/Abdominal exam: Non-tender, Non-distended, normal bowel sounds, soft, no peritoneal signs. Extremities exam: full ROM, no pedal edema, pulses palpable in b/l lower extremities. no calf tenderness. Rt foot is redness resolved. Non tender. Neurological exam: AOx3, however occasionally confused. Moving all extremities, cranial nerves grossly intact. Motor and sensory exam grossly unremarkable Skin exam: Rt foot rash as above. No other skin rash, ulcer, purpura or ecchymosis. s - Summary of Assessment and Plan Summary of Assessment and Plan: COPD exacerbation - Slighly improved. - c/w duonebs schedule and as needed - c/w steroids 60 mg daily - Start home symbicort Encephalopathy - Alcohol levels at [facility] were unremarkable. - Head CT at unremarkable - Likely from sepsis - Tineo, B12 normal. Acetaminophen, salicylate, UDS negative. - Mentation appears to be close to baseline now. However occasionally confused. Sepsis - s/p 6 Lit. - Low suspicious for Endocarditis. Blood cultures negative. No sigmata of endocarditis. ECHO with Mild LDD, EF 70-75 - CT of Rt foot without evidence of septic arthritis or abscess. CT chest without consolidation or effusion. - Likely from cellulitis of Rt foot. - lactic acid 2.6 to 1 after IVF - blood cultures NGTD, urinalysis and culture negative. - Rapid flu swab negative - Will c/w vancomycin, Zosyn. Will consult ID tomorrow for need for fdc IV given prosthetic heart material. likely switch to PO Bactrim on DC. Hyponatremia - Improving - hold HCTZ in setting of hyponatremia - Likely from dehydration. - c/w IVF RLL nodule - CT chest with unchanged 4 mm RLL nodule. - f/u Outpatient Elevated troponin - Troponin at [facility] was 0.128. 0.3 - could not offer complains. h/o CAD - EKG without any ischemic changes - Likely demand ischemia. - ECHO with limited study. will f/u with cardiology. Coronary artery disease - c/w home medications. PT/OT - Time Spent with Patient Total time spent is greater than 50% in coordination of care (as documented) at patient's floor/unit and/or counseling patient: Internal Medicine: Result - Labs CBC & Chem 7: 03/09/18 03:59 03/11/18 04:54 Labs: BMP 03/11/18 04:54 Sodium 137 Potassium 3.3 L Chloride 104 Carbon Dioxide 21 L BUN 9 Creatinine 0.88 Glucose 127 H Calcium 8.6 Consult Discharge Plan - Plan Referrals: [place],PCP [Primary Care Provider] - 03/21/18 1:45 pm (red team [facility])
[2018-03-12] MEDS: Piperacillin/Tazobactam 3.375 GM in 0.9 % Sodium Chloride Mini Bag 100 ML IVPB SCH ×3 (00:18→16:54)
[2018-03-12] MEDS: Ipratropium/Albuterol Neb 3 ML IH SCH ×4 (03:56→22:12)
[2018-03-12] MEDS: *HR* Heparin 5,000 UNIT/ML VIAL SQ SCH ×2 (05:21→16:54)
[2018-03-12 08:06] LABS: Basophils % 0.1 %; Eosinophils % 0.1 %; Hematocrit 32.3 % (37.5-50.1); Hemoglobin 10.8 g/dL (12.9-16.9); Immature Granulocytes % 0.3 % (0-4); Lymphocytes # 0.3 K/mcL (0.6-4.6); Lymphocytes % 2.1 %; Mean Corpuscular HGB Conc 33.4 g/dL (31.6-35.5); Mean Corpuscular Hemoglobin 28.5 pg (28.0-33.3); Mean Corpuscular Volume 85.2 fL (83.0-100.0); Mean Platelet Volume 8.6 fL (9.4-12.4); Monocytes # 0.6 K/mcL (0.0-1.3); Monocytes % 4.6 %; Platelet Count 314 K/mcL (140-400); Red Blood Count 3.79 M/mcL (4.19-5.50); Red Cell Distribution Width 13.8 % (11.5-14.5); Segmented Neutrophils % 92.8 %
[2018-03-12 08:26] LABS: Potassium 4.1 mEq/L (3.5-5.1)
[2018-03-12 08:27] LABS: Calcium 8.9 mg/dL (8.6-10.3)
[2018-03-12] MEDS: Aspirin Enteric Coated 81 MG Tablet PO SCH (09:05)
[2018-03-12] MEDS: Roflumilast [Daliresp] 500 MCG PO SCH (09:05)
[2018-03-12] MEDS: methylPREDNISolone 125 MG/2 ML VIAL IVP SCH (09:05)
[2018-03-12] MEDS: Budesonide/Formoterol 80/4.5 MDI IH SCH ×2 (10:09→22:12)
--- NOTE | 2018-03-12 10:28 | Infectious Disease Consult ---
Date of Encounter: 03/12/18 Time of Encounter: 10:00 Assessment and Plan (1) Sepsis Status: Acute Assessment and plan: SIRS criteria met: fever, tachycardia, tachypnea Etiology unknown, but possibly secondary to cellulitis of right foot Causative organism: unclear Lactic acid 1.0 03/08 blood culture: no growth to date 2 03/08 nasopharyngeal influenza swab: Negative type a and type B antigens 03/08 urine culture: No growth to date Previous cultures from October 2017 show Group B strep CT chest showed unchanged 4mm lung nodule, no evidence of consolidation CT foot showed severe osteoarthritis as well as mild soft tissue edema without fluid collection. TTE showed EF 70-75% with mild diastolic dysfunction. No significant valvular dysfunction. Less likely endocarditits. Antibiotics Vancomycin day 5 Zosyn day 5 1. Sepsis Recommendations: - Continue vancomycin and zosyn - Consider transition to PO abx on discharge. Recommend bactrim and keflex through 03/17 - Await final cultures and sensitivities Qualifiers: Sepsis type: sepsis due to unspecified organism Qualified Code(s): A41.9 - Sepsis, unspecified organism (2) Cellulitis Status: Acute Assessment and plan: Currently right foot with minimal erythema, no edema, no warmth to touch. Keep in mind patient has been on IV antibiotics for 5 days I think patient is rate to be switched to oral antibiotics We will do Bactrim and Keflex through 03/17/2018 Qualifiers: Site of cellulitis: extremity Site of cellulitis of extremity: lower extremity Laterality: right Qualified Code(s): L03.115 - Cellulitis of right lower limb (3) Acute exacerbation of chronic obstructive airways disease Status: Acute (4) Status post transcatheter aortic valve replacement Status: Chronic Assessment and plan: - TTE obtained - Aortic valve not well visualized - Negative blood cultures and no significant valvular dysfunction - Low suspicion for endocarditis at this time. (2 minor love criteria of fever and predisposing heart condition) - Patient recently had a group B strep bacteremia and was treated with IV antibiotics for 6 weeks as outpatient. Not sure what antibiotic the patient was on. We will attempt to get records from [place]. Currently not bacteremic no further recommendations needed Infectious Disease HPI - Data of Consult Patient: new to practice Consult date: 03/11/18 Requesting Physician: Syed Coy MD Primary Care Provider: PCP [place] - Consult Narrative Reason for consult: Extended course of IV antibiotics needed History of present illness: Mr. Winston is a 67 year old male who presented to [facility] ED on 03/07 for confusion x1 day. He was transferred to [place] and admitted on 03/08. Consult to ID made 03/11 regarding need for extended IV antibiotic therapy. Past medical history of COPD, AAA, DJD, aortic stenosis (S/P TAVR October 2017), HLD, HTN, HI, "black lung," and bipolar disease. Hospital course: ([facility] ED) Temperature 97.2 F, respirations 18, blood pressure 118/72, heart rate 80, oxygen saturation 96% on room air. Available records show elevated WBC 13.6, creatinine 1.03, lactic acid 2.6, and blood cultures reportedly drawn. CT head without contrast showed "no evidence of intracranial abnormality, small amount of fluid in mastoid air cells possibly representing mastoiditis". CT of lumbar spine showed "no acute fracture dislocation, status post laminectomy at L5 without visualized complication, no pre-vertebral soft tissue swelling to suggest acute soft tissue injury". Treatment at [facility] included 3 L boluses normal saline, 1 dose Zosyn, one dose Rocephin, 1 dose vancomycin. He was transferred to [place] with vital signs on arrival: Temperature 98.5 F, heart rate 100, respirations 20, blood pressure 152/77, oxygen saturation 91% room air. 03/08 CT Chest: Unchanged 4 mm solid nodule right lower lobe. Right foot CT: No significant effusion identified within limits of the exam. Mild soft tissue edema without organized drainable fluid collection identified; no subcutaneous gas evident. 03/08 Blood cultures x2 no growth to date; influenza swab negative for types A and B, urine culture no growth. Trans-thoracic echocardiogram on 03/09 showed LVEF 70-75%, mild LV diastolic dysfunction, no significant valvular dysfunction. Started on steroid therapy for COPD exacerbation on 03/09. Patient seen and examined this morning at bedside. He is awake, appears comfortable watching television in his bed and reports feeling well. Admits to cough with minimal sputum production before he gets his breathing treatments. He denies fevers, chills, nasal congestion, post nasal drip, sore throat, nausea, vomiting, chest pain, abdominal pain, difficulty having bowel movements, diarrhea, constipation, difficulty urinating, dysuria, hematuria, pyuria. He has no complaints today and is eager to go home. CC: Syed Coy MD Past Med Surg Social Fam HX - Past Medical History Medical history: COPD, hyperlipidemia, hypertension, myocardial infarction, valvular heart disease Additional medical history: BLACK LUNG Psychiatric history: bipolar - Past Surgical History Surgical History: angioplasty/stent, herniorrhaphy, knee replacement Additional surgical history: AAA. L shoulder. b/l knees - Social History Smoking Status: Former smoker Smokeless Tobacco Status: No Alcohol use: occasionally Drug use: none - Family History Father Living Status: Hx Family Respiratory Disorders: Yes Mother Living Status: Infectious Disease-CN:Meds RX: Albuterol Sulfate [Albuterol Inhaler] 2 puff IH QID PRN 10/14/15 [History] RX: Aspirin Enteric Coated [Aspirin EC] 81 mg PO DAILY 10/14/15 [History] RX: Omeprazole [PriLOSEC] 20 mg PO DAILY 10/14/15 [History] RX: Simvastatin [Zocor] 20 mg PO HS 10/14/15 [History] RX: Meloxicam [Mobic] 7.5 mg PO DAILY 09/05/17 [History] RX: Roflumilast [Daliresp] 500 mcg PO DAILY 09/05/17 [History] Budesonide/Formoterol 160/4.5 [Symbicort 160/4.5] 2 puff IH BIDR 03/08/18 [History] Ipratropium/Albuterol Neb [Duoneb] 3 ml IH Q6HR PRN 03/08/18 [History] Metoprolol [Lopressor] 25 mg PO DAILY 03/08/18 [History] RX: Ciprofloxacin/Dex *EAR* Susp [Ciprodex *EAR* Susp] 4 drop BOTH EARS BID 03/08/18 [History] RX: hydroCHLOROthiazide [Hydrochlorothiazide] 12.5 mg PO DAILY 03/08/18 [History] Allergy/AdvReac Type Severity Reaction Status Date / Time No Known Allergies Allergy Verified 03/08/18 10:58 - Constitutional Constitutional: Absent: chills, fever(s), night sweats - EENT Nose, mouth and throat: Absent: nasal congestion, post-nasal drip, sore throat - Cardiovascular Cardiovascular: Absent: chest pain, irregular heart rhythm, palpitations - Respiratory Respiratory: Present: cough. Absent: dyspnea, chest congestion - Gastrointestinal Gastrointestinal: Absent: abdominal pain, constipation, diarrhea, nausea, vomi ting Exam - Constitutional Vitals: Temp Pulse Resp BP Pulse Ox 97.1 F L 85 16 120/69 96 03/12/18 07:47 03/12/18 09:05 03/12/18 10:14 03/12/18 07:47 03/12/18 10:14 General appearance: cooperative, no acute distress Exam: General: No acute distress, resting comfortably in bed HEENT: head normocephalic/atraumatic, EOMI, PERRL, sclera anicteric, moist mucus membranes Neck: Supple, no lymphadenopathy, [id number] without pain Cardio: RRR, no murmurs, normal S1/S2, Pulm: CTAB, diminished, no wheezing, rhonchi, rales. Normal respiratory effort. Abdomen: soft, nontender, BS+, no rebound, rigidity, guarding, distention Extremities: right foot--no edema, nontender, slighty erythematous lateral malleoulus; 2+/4 dorsalis pedis pulses bilaterally, no calf tenderness, no cyanosis, clubbing, splinter hemorrhages Back: normal appearance on inspection Neuro: AAOx3, no focal deficit, no speech deficit, mentation intact, CN II-XII grossly intact, moves extremities spontaneously Skin: clean, dry, intact, no visible rashes Psych: Appropriate mood and affect. Answers questions appropriately. Cooperative with exam Infectious Disease CN: Results - Labs CBC & Chem 7: 03/13/18 04:13 03/13/18 04:13 Cultures: Cultures 03/08/18 11:00 Urine Culture - Final Urine,Catheterized No growth. 03/08/18 06:58 Influenza Types A,B Antigen - Final Nasopharyngeal 03/08/18 06:26 Blood Culture - Preliminary Peripheral Venipuncture Culture is incubating and being continuously monitored for growth. Final report to follow. 03/08/18 06:12 Blood Culture - Preliminary Peripheral Venipuncture Culture is incubating and being continuously monitored for growth. Final report to follow. Serology: Serology 03/08/18 03/08/18 03/08/18 Range/Units 11:00 11:00 11:00 Urine Color Yellow (Yellow) Urine Clarity Clear (Clear) Urine pH 5.5 (5.0-8.0) pH Units Ur Specific [place] 1.015 (1.010-1.025) Urine Protein Negative (Neg-Trace) mg/dL Urine Glucose (UA) Normal (Normal) mg/dL Urine Ketones 80 H (Negative) mg/dL Urine Blood Trace H (Negative) Urine Nitrite Negative (Negative) Urine Bilirubin Negative (Negative) Urine Urobilinogen Normal (Normal) mg/dL Ur Leukocyte Esterase Negative (Negative) Urine Microscopic WBC 0-3 (0-3) per hpf Amorphous Sediment Few (Few) Urine Osmolality 528 (300-1090) mOsm/kg Urine Sodium 118.2 mEq/L Consult Discharge Plan - Plan [facility]errals: [facility] [Primary Care Provider] - (No PCP appointment needed pt is going to [facility]) - Attending Attestation I examined this patient and my medical decision-making was reviewed with the Resident Physician. I agree with the documented findings, disposition and treatment plan as described except to the extent set forth below. This is an addendum to original report dictated by resident physician. Please refer to resident's note for full detail. Patient is a 67-year-old gentleman well-known to our service we have seen him before for group B strep bacteremia after prosthetic valve placement at [place] in October of this year. Patient was transferred back to [place] and he tells me he was discharged on 6 weeks of IV antibiotics. He does not remember which antibiotics it was. This time he comes in with sepsis like picture likely secondary to cellulitis of the right foot. Review of system is negative for any URI symptoms. Denies any headache, no sinus pressure, no sore throat, no rhinorrhea, no earache. Patient did have a CT scan which showed some fluid in the middle ear but clinically patient has no symptoms. Patient denies any chest pain shortness of breath cough. No diarrhea no urinary symptoms no abdominal pain. Assessment and plan: Cellulitis resolved Sepsis likely secondary to cellulitis resolved History of group B strep bacteremia with a prosthetic valve treated appropriately repeat cultures are negative concern for recurrent endocarditis area to physical exam is negative for conjunctival hemorrhage, endocarditis stigmata of the skin, new heart murmur. discharge on oral keflex and bactrim through 03/17/2018
--- NOTE | 2018-03-12 16:36 | Internal Med Progress Note ---
Hospitalist Progress Note - Encounter Date of Encounter: 03/12/18 Time of Encounter: 12:26 - Subjective Interval History: Patient seen and examined this morning. alert and oriented. Afebrile. breathing well. No new complains. No bowel or bladder complains - Exam Vitals: Temp Pulse Resp BP Pulse Ox 97.7 F 87 16 137/78 94 03/12/18 16:04 03/12/18 16:04 03/12/18 16:09 03/12/18 16:04 03/12/18 16:09 Exam: General: In no respiratroy distress. AOx3 Respiratory exam: RCTAB, No rales, rhonchi. scattered wheezing. Cardiovascular exam: RRR, +S1, +S2. no murmur, gallop, rubs. GI/Abdominal exam: Non-tender, Non-distended, normal bowel sounds, soft, no peritoneal signs. Extremities exam: full ROM, no pedal edema, pulses palpable in b/l lower extremities. no calf tenderness. Rt foot is redness resolved. Non tender. Neurological exam: AOx3, however occasionally confused. Moving all extremities, cranial nerves grossly intact. Motor and sensory exam grossly unremarkable Skin exam: Rt foot rash as above. No other skin rash, ulcer, purpura or ecchymosis. s - Assessment and Plan (1) Acute exacerbation of chronic obstructive airways disease Current Visit: No Status: Acute (2) Status post transcatheter aortic valve replacement Current Visit: Yes Status: Chronic (3) Hyponatremia Current Visit: Yes Status: Acute (4) Sepsis Current Visit: Yes Status: Resolved - Summary of Assessment and Plan Summary of Assessment and Plan: COPD exacerbation - clinically improved. - c/w duonebs schedule and as needed - c/w steroids 60 mg daily - Start home symbicort Encephalopathy - Alcohol levels at [place] were unremarkable. - Head CT at unremarkable - Likely from sepsis - [place], B12 normal. Acetaminophen, salicylate, UDS negative. - Mentation appears to be close to baseline now. Sepsis - s/p 6 Lit. - Low suspicious for Endocarditis. Blood cultures negative. No sigmata of endocarditis. ECHO with Mild LDD, EF 70-75 - CT of Rt foot without evidence of septic arthritis or abscess. CT chest without consolidation or effusion. - Likely from cellulitis of Rt foot. - lactic acid 2.6 to 1 after IVF - blood cultures NGTD, urinalysis and culture negative. - Rapid flu swab negative - c/w vancomycin, Zosyn. - Clinically improved by wbc increased today. - f/u ID regarding need for further antibiotics given wbc and h/o TAVR with need for IV antibiotics after.. Hyponatremia - Improving - hold HCTZ in setting of hyponatremia - Likely from dehydration. - resolved. LEDA - worsening of renal function - Likely from antibiotics use - Monitor for now RLL nodule - CT chest with unchanged 4 mm RLL nodule. - f/u Outpatient Elevated troponin - Troponin at [facility] was 0.128. 0.3 - could not offer complains. h/o CAD - EKG without any ischemic changes - Likely demand ischemia. Coronary artery disease - c/w home medications. PT/OT recommending SNF. - Time Spent with Patient Total time spent is greater than 50% in coordination of care (as documented) at patient's floor/unit and/or counseling patient: Internal Medicine: Result - Labs CBC & Chem 7: 03/12/18 07:11 03/12/18 07:11 Labs: Short CBC 03/12/18 Range/Units 07:11 WBC 11.9 H (4.3-11.1) K/mcL Hgb 10.8 L (12.9-16.9) g/dL Hct 32.3 L (37.5-50.1) % Plt Count 314 (140-400) K/mcL Neutrophils # 11.0 H (1.6-8.9) K/mcL BMP 03/12/18 07:11 Sodium 139 Potassium 4.1 Chloride 108 H Carbon Dioxide 20 L BUN 19 Creatinine 1.44 H Glucose 160 H Calcium 8.9 Consult Discharge Plan - Plan Referrals: [place],PCP [Primary Care Provider] - 03/21/18 1:45 pm (red team Please [facility])
[2018-03-13] MEDS: Piperacillin/Tazobactam 3.375 GM in 0.9 % Sodium Chloride Mini Bag 100 ML IVPB SCH ×2 (00:12→07:52)
[2018-03-13] MEDS: Ipratropium/Albuterol Neb 3 ML IH SCH ×2 (03:56→10:54)
[2018-03-13 05:11] LABS: Basophils % 0.1 %; Hematocrit 31.4 % (37.5-50.1); Hemoglobin 10.6 g/dL (12.9-16.9); Immature Granulocytes % 0.6 % (0-4); Lymphocytes # 0.5 K/mcL (0.6-4.6); Lymphocytes % 3.1 %; Mean Corpuscular HGB Conc 33.8 g/dL (31.6-35.5); Mean Corpuscular Hemoglobin 28.6 pg (28.0-33.3); Mean Corpuscular Volume 84.9 fL (83.0-100.0); Mean Platelet Volume 8.6 fL (9.4-12.4); Monocytes # 0.8 K/mcL (0.0-1.3); Monocytes % 5.2 %; Neutrophils # 13.5 K/mcL (1.6-8.9); Platelet Count 327 K/mcL (140-400); Red Cell Distribution Width 13.8 % (11.5-14.5)
[2018-03-13 05:28] LABS: Calcium 9.1 mg/dL (8.6-10.3); Potassium 3.8 mEq/L (3.5-5.1)
[2018-03-13 07:29] VITALS: BP 145/88
[2018-03-13] MEDS: Aspirin Enteric Coated 81 MG Tablet PO SCH (07:53)
[2018-03-13] MEDS: Roflumilast [Daliresp] 500 MCG PO SCH (07:54)
[2018-03-13] MEDS: *HR* Heparin 5,000 UNIT/ML VIAL SQ SCH (08:15)
[2018-03-13] MEDS ORDERED: predniSONE 20 MG TABLET PO SCH (09:00)
--- NOTE | 2018-03-13 09:17 | Discharge Summary ---
Date of Encounter: 03/13/18 Time of Encounter: 09:00 - Discharge Diagnosis (1) Acute exacerbation of chronic obstructive airways disease Status: Acute (2) Status post transcatheter aortic valve replacement Status: Chronic (3) Sepsis Status: Acute Qualifiers: Sepsis type: sepsis due to unspecified organism Qualified Code(s): A41.9 - Sepsis, unspecified organism (4) Cellulitis Status: Acute Qualifiers: Site of cellulitis: extremity Site of cellulitis of extremity: lower extremity Laterality: right Qualified Code(s): L03.115 - Cellulitis of right lower limb Hospital course: Mr. Winston is a 67 year old male - Time Spent with Patient Total time spent providing and/or coordinating discharge services: - Discharge Medications Home Medications: Albuterol Sulfate [Albuterol Inhaler] 2 puff IH QID PRN 10/14/15 [History] Aspirin Enteric Coated [Aspirin EC] 81 mg PO DAILY 10/14/15 [History] Omeprazole [PriLOSEC] 20 mg PO DAILY 10/14/15 [History] Simvastatin [Zocor] 20 mg PO HS 10/14/15 [History] Meloxicam [Mobic] 7.5 mg PO DAILY 09/05/17 [History] Roflumilast [Daliresp] 500 mcg PO DAILY 09/05/17 [History] Budesonide/Formoterol 160/4.5 [Symbicort 160/4.5] 2 puff IH BIDR 03/08/18 [History] Ciprofloxacin/Dex *EAR* Susp [Ciprodex *EAR* Susp] 4 drop BOTH EARS BID 03/08/18 [History] Ipratropium/Albuterol Neb [Duoneb] 3 ml IH Q6HR PRN 03/08/18 [History] Metoprolol [Lopressor] 25 mg PO DAILY 03/08/18 [History] hydroCHLOROthiazide [Hydrochlorothiazide] 12.5 mg PO DAILY 03/08/18 [History] Allergies/Adverse Reactions: Allergy/AdvReac Type Severity Reaction Status Date / Time No Known Allergies Allergy Verified 03/08/18 10:58 Date of admission: 03/08/18 07:40 [facility] care physician: [facility] Consults: 03/08/18 14:12 Consult to Cardiology [CONS] Routine Comment: Consulting Provider: Cardiology [place] Reason for Consult: elevated troponin Call Completed: Yes 03/11/18 12:21 Consult to Physical Therapy [CONS] Routine Comment: Evaluate, develop and implement POC Reason for Consult: weakness, discharge planning Does patient have active BEDREST order?: No Is patient medically & hemodynamically stable?: Yes Patient assessed for mobility or mobilized this visit?: Yes OT [Consult to Occupational Therapy] [CONS] Routine Comment: Evaluate, develop and implement POC Reason for Consult: weakness, discharge planning Does patient have active BEDREST order?: No Is patient medically & hemodynamically stable?: Yes Patient assessed for mobility or mobilized this visit?: Yes 03/11/18 16:18 Consult to Infectious Diseases [CONS] Routine Consulting Provider: Infectious Disease [place] Reason for Consult: Need for longer IV abx therapy Call Completed: No 03/11/18 18:01 Consult to Ssis Architect [CONS] Routine Reason for SW Consult: Possible ECF placement after therapy eval. currently in rehab at [place], pt. was not doing well home alone, came in dehydrated and malnurished. - Constitutional Vitals: Temp Pulse Resp BP Pulse Ox 98.2 F 102 20 145/88 95 03/13/18 07:26 03/13/18 07:26 03/13/18 07:26 03/13/18 07:26 03/13/18 07:26 General appearance: Present: A&O X 0 - Discharge Instructions Follow Up With: JOSE ANTONIO,PCP [Primary Care Provider] - 03/21/18 1:45 pm (red team [facility])
[2018-03-13] MEDS: Budesonide/Formoterol 80/4.5 MDI IH SCH (10:54)
--- NOTE | 2018-03-13 11:08 | Infectious Disease Progress No ---
Date of Encounter: 03/13/18 Time of Encounter: 09:00 - Assessment and Plan (1) Sepsis Status: Acute Improved clinically SIRS criteria met: fever, tachycardia, tachypnea Etiology unknown, but possibly secondary to cellulitis of right foot Causative organism: unclear Lactic acid 1.0 WBC count on admission was WNL, on 03/12 increased to 11.9 and was 14.8 today--suspect primarily due to steroid course he has been receiving for acute exacerbation of COPD 03/08 blood culture: no growth to date 2--final 03/08 nasopharyngeal influenza swab: Negative type a and type B antigens 03/08 urine culture: No growth to date--final Previous cultures from October 2017 show Group B [address] chest showed unchanged 4mm lung nodule, no evidence of consolidation CT foot showed severe osteoarthritis as well as mild soft tissue edema without fluid collection. TTE showed EF 70-75% with mild diastolic dysfunction. No significant valvular dysfunction. Less likely endocarditits. Current antibiotics: Vancomycin day 6 Zosyn day 6 1. Sepsis Recommendations: - Stop vancomycin and zosyn today - Recommend PO bactrim and keflex treatment through 03/17/18 Qualifiers: Sepsis type: sepsis due to unspecified organism Qualified Code(s): A41.9 - Sepsis, unspecified organism (2) Cellulitis Status: Acute Resolved Right foot erythema resolved, no edema, no warmth to touch. Keep in mind patient has been on IV antibiotics for 5 days Can discharge with PO Bactrim and Keflex through 03/17/2018 Qualifiers: Site of cellulitis: extremity Site of cellulitis of extremity: lower extremity Laterality: right Qualified Code(s): L03.115 - Cellulitis of right lower limb (3) Acute exacerbation of chronic obstructive airways disease Status: Acute (4) Status post transcatheter aortic valve replacement Status: Chronic - TTE obtained - Aortic valve not well visualized - Negative blood cultures and no significant valvular dysfunction - Low suspicion for endocarditis at this time. (2 minor love criteria of fever and predisposing heart condition) - Patient treated for group B strep bacteremia s/p prosthetic valve placement at [place] October 2017; was treated with IV antibiotics for 6 weeks as outpatient. Patient does not remember which antibiotic he was treated with. - Subjective Interval history: Patient seen and examined this morning at bedside. He is lying comfortably in bed. He has no complaints and is looking forward to being discharged (he will be discharged to rehabilitation). He denies fevers, chills, headache, sinus pressure, nasal congestion, rhinorrhea, postnasal drip, sore throat, chest pain or pressure, cough, sputum production, abdominal pain, nausea, vomiting, or joint pain above his baseline. Infect Dis PN-Objective Data - Labs CBC & Chem 7: 03/13/18 04:13 03/13/18 04:13 Labs: Laboratory Results - last 24 hr 03/13/18 03/13/18 04:13 04:13 WBC 14.8 H RBC 3.70 L Hgb 10.6 L Hct 31.4 L MCV 84.9 MCH 28.6 MCHC 33.8 RDW 13.8 Plt Count 327 MPV 8.6 L Immature Gran % 0.6 Seg Neutrophils % 91.0 Lymphocytes % 3.1 Monocytes % 5.2 Eosinophils % 0.0 Basophils % 0.1 Neutrophils # 13.5 H Lymphocytes # 0.5 L Monocytes # 0.8 Eosinophils # 0.0 Basophils # 0.0 Sodium 141 Potassium 3.8 Chloride 108 H Carbon Dioxide 22 L BUN 28 H Creatinine 1.52 H Est GFR ( Amer) 55 L Est GFR (Non-Af Amer) 46 L BUN/Creatinine Ratio 18 Glucose 133 H Calculated Osmolality 299 Calcium 9.1 Cultures: Cultures 03/08/18 06:26 Blood Culture - Final Peripheral Venipuncture No growth. Final report. 03/08/18 06:12 Blood Culture - Final Peripheral Venipuncture No growth. Final report. 03/08/18 11:00 Urine Culture - Final Urine,Catheterized No growth. 03/08/18 06:58 Influenza Types A,B Antigen - Final Nasopharyngeal Serology 03/08/18 03/08/18 03/08/18 Range/Units 11:00 11:00 11:00 Urine Color Yellow (Yellow) Urine Clarity Clear (Clear) Urine pH 5.5 (5.0-8.0) pH Units Ur Specific [place] 1.015 (1.010-1.025) Urine Protein Negative (Neg-Trace) mg/dL Urine Glucose (UA) Normal (Normal) mg/dL Urine Ketones 80 H (Negative) mg/dL Urine Blood Trace H (Negative) Urine Nitrite Negative (Negative) Urine Bilirubin Negative (Negative) Urine Urobilinogen Normal (Normal) mg/dL Ur Leukocyte Esterase Negative (Negative) Urine Microscopic WBC 0-3 (0-3) per hpf Amorphous Sediment Few (Few) Urine Osmolality 528 (300-1090) mOsm/kg Urine Sodium 118.2 mEq/L Exam - Constitutional Vitals: Temp Pulse Resp BP Pulse Ox 98.2 F 102 16 145/88 95 03/13/18 07:26 03/13/18 07:26 03/13/18 10:54 03/13/18 07:26 03/13/18 10:54 Exam: General: No acute distress, resting comfortably in bed HEENT: head normocephalic/atraumatic, EOMI, PERRL, sclera anicteric, moist mucus membranes Neck: Supple, no meningismus Cardio: RRR, no murmurs, normal S1/S2, Pulm: CTAB, diminished, no wheezing, rhonchi, rales. Normal respiratory effort. Abdomen: soft, nontender, normal bowel sounds, no rebound, rigidity, guarding, distention Extremities: right foot--no edema, nontender, lateral malleoulus erythema gone; 2+/4 dorsalis pedis pulses bilaterally, no calf tenderness, no cyanosis, clubbing, splinter hemorrhages Back: normal appearance on inspection Neuro: AAOx3, no focal deficit, no speech deficit, CN II-XII grossly intact, moves extremities spontaneously Skin: clean, dry, intact, no visible rashes Psych: Appropriate mood and affect. Answers questions appropriately. Cooperative with exam Consult Discharge Plan - Plan Referrals: [facility] [Primary Care Provider] - (No PCP appointment needed pt is going to [facility]) Prescriptions: cephALEXin [Cephalexin] 500 mg PO Q12H 5 Days #10 tablet RX: predniSONE [PredniSONE] 40 mg PO DAILY 5 Days #10 tablet Sulfamethoxazole/Trimeth DS [Bactrim DS] 1 each PO BID 5 Days #10 tablet - Attending Attestation I examined this patient and my medical decision-making was reviewed with the Resident Physician. I agree with the documented findings, disposition and treatment plan as described except to the extent set forth below.
--- NOTE | 2018-03-13 12:46 | Discharge Summary ---
Date of Encounter: 03/13/18 Time of Encounter: 12:00 - Discharge Diagnosis (1) Sepsis Priority: Primary Status: Acute Assessment and Plan: 67 year old male with past medical history of COPD, AAA, CAD, DJD, aortic stenosis (s/p TAVR). Patient arrived to [facility] emergency department yesterday via EMS. Patient was accompanied by family at [facility] emergency department. Per [facility] records, family stated that patient had increased confusion since the day prior, has eaten in 24 hours. He fell on the floor on the night of arrival with reported multiple skin tears to bilateral upper extremities. He was confused and very aggressive with staff. He was assessed with acute metabolic encephalopathy likely secondary to severe sepsis and COPD exacerbation and started on vanc and zosyn and nebs and steroids. Source of sepsis thought to be secondary to right foot cellulitis, He was seen by infectious disease and plan to discharge him to complete a 10 day course of antibiotics total with bactrim and keflex po. He will also complete a tapering course of steroids. He was discharged to SNf in a stable condition Qualifiers: Sepsis type: sepsis due to unspecified organism Qualified Code(s): A41.9 - Sepsis, unspecified organism (2) Acute exacerbation of chronic obstructive airways disease Priority: Primary Status: Acute (3) Status post transcatheter aortic valve replacement Priority: Primary Status: Chronic (4) Cellulitis Priority: Primary Status: Acute Qualifiers: Site of cellulitis: extremity Site of cellulitis of extremity: lower extremity Laterality: right Qualified Code(s): L03.115 - Cellulitis of right lower limb Hospital course: Mr. Winston is a 67 year old male - Time Spent with Patient Total time spent providing and/or coordinating discharge services: - Discharge Medications Prescriptions: cephALEXin [Cephalexin] 500 mg PO Q12H 5 Days #10 tablet predniSONE [PredniSONE] 40 mg PO DAILY 5 Days #10 tablet Sulfamethoxazole/Trimeth DS [Bactrim DS] 1 each PO BID 5 Days #10 tablet Home Medications: Albuterol Sulfate [Albuterol Inhaler] 2 puff IH QID PRN 10/14/15 [History] Aspirin Enteric Coated [Aspirin EC] 81 mg PO DAILY 10/14/15 [History] Omeprazole [PriLOSEC] 20 mg PO DAILY 10/14/15 [History] Simvastatin [Zocor] 20 mg PO HS 10/14/15 [History] Meloxicam [Mobic] 7.5 mg PO DAILY 09/05/17 [History] Roflumilast [Daliresp] 500 mcg PO DAILY 09/05/17 [History] Budesonide/Formoterol 160/4.5 [Symbicort 160/4.5] 2 puff IH BIDR 03/08/18 [History] Ciprofloxacin/Dex *EAR* Susp [Ciprodex *EAR* Susp] 4 drop BOTH EARS BID 03/08/18 [History] Ipratropium/Albuterol Neb [Duoneb] 3 ml IH Q6HR PRN 03/08/18 [History] Metoprolol [Lopressor] 25 mg PO DAILY 03/08/18 [History] hydroCHLOROthiazide [Hydrochlorothiazide] 12.5 mg PO DAILY 03/08/18 [History] Sulfamethoxazole/Trimeth DS [Bactrim DS] 1 each PO BID 5 Days #10 tablet 03/13/18 [Rx] cephALEXin [Cephalexin] 500 mg PO Q12H 5 Days #10 tablet 03/13/18 [Rx] predniSONE [PredniSONE] 40 mg PO DAILY 5 Days #10 tablet 03/13/18 [Rx] Allergies/Adverse Reactions: Allergy/AdvReac Type Severity Reaction Status Date / Time No Known Allergies Allergy Verified 03/08/18 10:58 Date of admission: 03/08/18 07:40 [facility] care physician: [facility] Consults: 03/08/18 14:12 Consult to Cardiology [CONS] Routine Comment: Consulting Provider: Cardiology [facility] Reason for Consult: elevated troponin Call Completed: Yes 03/11/18 12:21 Consult to Physical Therapy [CONS] Routine Comment: Evaluate, develop and implement POC Reason for Consult: weakness, discharge planning Does patient have active BEDREST order?: No Is patient medically & hemodynamically stable?: Yes Patient assessed for mobility or mobilized this visit?: Yes OT [Consult to Occupational Therapy] [CONS] Routine Comment: Evaluate, develop and implement POC Reason for Consult: weakness, discharge planning Does patient have active BEDREST order?: No Is patient medically & hemodynamically stable?: Yes Patient assessed for mobility or mobilized this visit?: Yes 03/11/18 16:18 Consult to Infectious Diseases [CONS] Routine Consulting Provider: Infectious Disease [place] Reason for Consult: Need for longer IV abx therapy Call Completed: No 03/11/18 18:01 Consult to [employer] Sprink[employer]er [CONS] Routine Reason for SW Consult: Possible ECF placement after therapy eval. currently in rehab at [facility], pt. was not doing well home alone, came in dehydrated and malnurished. - Constitutional Vitals: Temp Pulse Resp BP Pulse Ox 98.2 F 102 16 145/88 95 03/13/18 07:26 03/13/18 07:26 03/13/18 10:54 03/13/18 07:26 03/13/18 10:54 General appearance: Present: A&O X 0 Exam: General: In no respiratroy distress. AOx3 Respiratory exam: RCTAB, No rales, rhonchi. scattered wheezing. Cardiovascular exam: RRR, +S1, +S2. no murmur, gallop, rubs. GI/Abdominal exam: Non-tender, Non-distended, normal bowel sounds, soft, no peritoneal signs. Extremities exam: full ROM, no pedal edema, pulses palpable in b/l lower extremities. no calf tenderness. Rt foot is redness resolved. Non tender. Neurological exam: AOx3, however occasionally confused. Moving all extremities, cranial nerves grossly intact. Motor and sensory exam grossly unremarkable Skin exam: Rt foot rash as above. No other skin rash, ulcer, purpura or ecchymosis. s - Patient Status Disposition: Transfer SNF - Discharge Instructions Follow Up With: [facility]P [Primary Care Provider] - (No PCP appointment needed pt is going to ECF)
--- NOTE | 2018-03-13 12:51 | Physician Discharge Referral ---
- Diagnosis (1) Acute exacerbation of chronic obstructive airways disease Priority: Primary Status: Acute (2) Status post transcatheter aortic valve replacement Priority: Primary Status: Chronic (3) Sepsis Priority: Primary Status: Acute (4) Cellulitis Priority: Primary Status: Acute - Transfer Medications Prescriptions: cephALEXin [Cephalexin] 500 mg PO Q12H 5 Days #10 tablet predniSONE [PredniSONE] 40 mg PO DAILY 5 Days #10 tablet Sulfamethoxazole/Trimeth DS [Bactrim DS] 1 each PO BID 5 Days #10 tablet Home Medications: Albuterol Sulfate [Albuterol Inhaler] 2 puff IH QID PRN 10/14/15 [History] Aspirin Enteric Coated [Aspirin EC] 81 mg PO DAILY 10/14/15 [History] Omeprazole [PriLOSEC] 20 mg PO DAILY 10/14/15 [History] Simvastatin [Zocor] 20 mg PO HS 10/14/15 [History] Meloxicam [Mobic] 7.5 mg PO DAILY 09/05/17 [History] Roflumilast [Daliresp] 500 mcg PO DAILY 09/05/17 [History] Budesonide/Formoterol 160/4.5 [Symbicort 160/4.5] 2 puff IH BIDR 03/08/18 [History] Ciprofloxacin/Dex *EAR* Susp [Ciprodex *EAR* Susp] 4 drop BOTH EARS BID 03/08/18 [History] Ipratropium/Albuterol Neb [Duoneb] 3 ml IH Q6HR PRN 03/08/18 [History] Metoprolol [Lopressor] 25 mg PO DAILY 03/08/18 [History] hydroCHLOROthiazide [Hydrochlorothiazide] 12.5 mg PO DAILY 03/08/18 [History] Sulfamethoxazole/Trimeth DS [Bactrim DS] 1 each PO BID 5 Days #10 tablet 03/13/18 [Rx] cephALEXin [Cephalexin] 500 mg PO Q12H 5 Days #10 tablet 03/13/18 [Rx] predniSONE [PredniSONE] 40 mg PO DAILY 5 Days #10 tablet 03/13/18 [Rx] Allergies/Adverse Reactions: Allergy/AdvReac Type Severity Reaction Status Date / Time No Known Allergies Allergy Verified 03/08/18 10:58 - Respiratory Orders Smoking Cessation: Smoking cessation has been advised. For more information, call the [place] Tobacco Quit Line at 2-158-JOVL-NOW. - Mobility Orders Ambulate - Rehabiliation Orders Rehab Potential: Good - Diet Orders Cardiac CERTIFICATION: I certify that the transfer of the above named patient to an Extended Care Facility is necessary for the continuing treatment of the diagnosis listed. The above information is true and accurate reflection of patient's current condition. Confidential - Redisclosure prohibited without a patient's written consent.
== END 2018-03-13 14:26 | DRG 871 ==
LOC: 2NNU → SUATTDRO 05:24
PROVIDERS: ADMIT Internal Medicine; ATTEND Internal Medicine

== ENCOUNTER 2018-05-27 15:05 | Observation (INO) ==
[2018-05-27] MEDS ORDERED: 0.9 % Sodium Chloride 1,000 ML IVC ONE (15:27)
[2018-05-27] MEDS ORDERED: Isovue-370 500 ML BOTTLE IVP ONE ×2 (15:28)
[2018-05-27 15:39] LABS: Hematocrit 29.5 % (37.5-50.1); Hemoglobin 9.9 g/dL (12.9-16.9); Mean Corpuscular HGB Conc 33.6 g/dL (31.6-35.5); Mean Corpuscular Hemoglobin 28.4 pg (28.0-33.3); Mean Corpuscular Volume 84.5 fL (83.0-100.0); Mean Platelet Volume 8.7 fL (9.4-12.4); Platelet Count 336 K/mcL (140-400); Red Blood Count 3.49 M/mcL (4.19-5.50)
[2018-05-27 15:47] LABS: Prothrombin Time 11.7 Seconds (9.4-12.1)
--- NOTE | 2018-05-27 15:49 | Emergency Department Note ---
Disposition Clinical Impression: Hyponatremia, History of abdominal aortic aneurysm (AAA) Otitis Qualifiers: Laterality: right Qualified Code(s): H66.91 - Otitis media, unspecified, right ear Altered mental status Qualifiers: Altered mental status type: transient alteration of awareness Qualified Code( s): R40.4 - Transient alteration of awareness Disposition: Admitted As Inpatient Condition: Good Forms: ED Satisfaction Letter Time of Disposition: 18:33 General Adult HPI - General Chief complaint: ED Neuro Symptoms/Deficit Stated complaint: slurred speech/neuro Time Seen by Provider: 05/27/18 15:17 Source: family Limitations: no limitations Nursing Notes Reviewed: Yes Vital Signs Reviewed: Yes - History of Present Illness HPI Narrative: Male patient presents emergency department with his family. They report that he has had a decline in his mentation over the past 2 weeks. He states that he has been increasingly weak. States that it got significantly worse within the past 24 hours. He states that he is normally very with that and able to talk about his checking account however today he was asking where he was. The granddaughter in the room states that they were concerned for a possible old stroke however the daughter in the room repeatedly states that they were never told that he actually had a stroke. Patient did have a recent stay at [facility] for an aortic valve replacement. Family reports that he is not on any type of anticoagulation at this time. [facility] and the patient states that his decline began to get worse after he got home. Pain Scale: 0 - Related Data Home Medications Medication Instructions Recorded Confirmed Albuterol Sulfate [Albuterol 2 puff IH QID PRN 10/14/15 03/08/18 Inhaler] Aspirin Enteric Coated [Aspirin EC] 81 mg PO DAILY 10/14/15 03/08/18 Omeprazole [PriLOSEC] 20 mg PO DAILY 10/14/15 03/08/18 Simvastatin [Zocor] 20 mg PO HS 10/14/15 03/08/18 Meloxicam [Mobic] 7.5 mg PO DAILY 09/05/17 03/08/18 Roflumilast [Daliresp] 500 mcg PO DAILY 09/05/17 03/08/18 Budesonide/Formoterol 160/4.5 2 puff IH BIDR 03/08/18 03/08/18 [Symbicort 160/4.5] Ciprofloxacin/Dex *EAR* Susp 4 drop BOTH EARS BID 03/08/18 03/08/18 [Ciprodex *EAR* Susp] Ipratropium/Albuterol Neb [Duoneb] 3 ml IH Q6HR PRN 03/08/18 03/08/18 Metoprolol [Lopressor] 25 mg PO DAILY 03/08/18 03/08/18 hydroCHLOROthiazide 12.5 mg PO DAILY 03/08/18 03/08/18 [Hydrochlorothiazide] Allergies Allergy/AdvReac Type Severity Reaction Status Date / Time No Known Allergies Allergy Verified 04/05/18 15:06 All systems ED: reviewed and negative except as stated. Limitations: ROS unobtainable due to patients medical condition Constitutional: Reports: chills. Denies: fever Past Medical History - Past Medical History Attestation: Yes The following information was validated with the patient. Medical history: Reports: myocardial infarction, hyperlipidemia, hypertension, valvular heart disease, COPD Surgical history: Reports: herniorrhaphy, knee replacement, angioplasty/stent Psychiatric history: Reports: bipolar - Social History Smoking Status: Former smoker Smokeless Tobacco Status: No Alcohol use: Reports: occasionally Drug use: Reports: none Physical Exam - General Limitations: no limitations General appearance: alert, lethargic - Head Head exam: atraumatic, normocephalic, normal inspection - Eye Eye exam: Present: normal appearance, PERRL, EOMI - ENT ENT exam: normal exam, normal oropharynx, mucous membranes moist - Expanded ENT Exam TM/Canal: Erythema: Bilateral TM, Effusion: Right TM (Purulent), Loss of Landmarks: Bilateral TM - Neck Neck exam: Present: normal inspection, full ROM, trachea midline - Chest Chest inspection: Present: normal inspection, symmetric chest wall rise - Respiratory Respiratory exam: Present: other (Rhonchorous throughout). Absent: respiratory distress - Cardiovascular Cardiovascular exam: Present: regular rate, normal rhythm, normal heart sounds - Abdominal Exam Abdominal exam: Present: soft, Non-Tender. Absent: tenderness, distention, guarding, rebound, rigidity, organomegaly - Extremities Exam Extremities exam: Present: normal inspection, full ROM, normal capillary refill. Absent: tenderness, pedal edema - Neurological Exam Neurological exam: Present: alert, other (Confused) - Skin Skin exam: Present: warm, dry, intact, normal color. Absent: rash, cyanosis Course Course Narrative: Patient is mildly confused with no focal deficits at this time. We did get a CT of patient's head which showed no acute process. However it did have old ischemic changes. Also showed possible mastoiditis. Family reports that he does have a cough. They state that this morning he had a clear sputum. Does have a history of COPD. No fevers but he does generally chill. We will continue the workup. - Reevaluation(s) Reevaluation #1: Patient reevaluated. He is alert and oriented 3 with no deficits at this time. No slurred speech. He is very pleasant and refusing to go to [facility]. We will admit him to the hospital at this time for further evaluation. Time: 18:32 - Consultations Consultation #1: I spoke with [facility]. They are requesting that we contact them back with a CTA results. They state the patient is not a TPA candidate at this time secondary to the length of his symptoms. I feel this is reasonable. Time: 15:48 Consultation #2: [place] radiology is stating that the patient does not have anything acute he does have chronic ischemic changes. He also has an effusion to the left mastoid which could possibly be a mastoiditis. Time: 15:53 Consultation #3: Dr Roach accepted Pt in stable condition Time: 18:30 Vital Signs Temperature 97.6 F 05/27/18 15:19 Pulse Rate 58 05/27/18 15:19 Respiratory Rate 24 05/27/18 15:19 Blood Pressure 000/00 05/27/18 15:19 O2 Sat by Pulse Oximetry 100 05/27/18 15:19 Temperature 97.6 F 05/27/18 15:50 Pulse Rate 74 05/27/18 17:28 Respiratory Rate 15 05/27/18 17:28 Blood Pressure 133/71 05/27/18 17:28 O2 Sat by Pulse Oximetry 99 05/27/18 17:28 Oxygen Delivery Oxygen Delivery Room Air Medical Decision Making - Medical Records Medical records reviewed: Yes I reviewed the patient's medical records. - Lab Data Lab results reviewed: Yes I reviewed the patient's lab results. Result diagrams: 05/27/18 15:25 05/27/18 15:25 Lab Results 02/03/19 02/03/19 02/03/19 Range/Units 15:25 15:25 15:25 WBC 10.6 (4.3-11.1) K/mcL RBC 3.49 L (4.19-5.50) M/mcL Hgb 9.9 L (12.9-16.9) g/dL Hct 29.5 L (37.5-50.1) % MCV 84.5 (83.0-100.0) fL MCH 28.4 (28.0-33.3) pg MCHC 33.6 (31.6-35.5) g/dL RDW 14.0 (11.5-14.5) % Plt Count 336 (140-400) K/mcL MPV 8.7 L (9.4-12.4) fL PT 11.7 (9.4-12.1) Seconds INR 1.0 APTT 35.1 (26.0-36.0) Seconds Sodium 125 L (136-145) mEq/L Potassium 4.0 (3.5-5.1) mEq/L Chloride 90 L (98-107) mEq/L Carbon Dioxide 26 (23-29) mEq/L BUN 15 (8-23) mg/dL Creatinine 0.91 (0.70-1.30) mg/dL Est GFR ( Amer) > 60 (> 60) Est GFR (Non-Af Amer) > 60 (> 60) BUN/Creatinine Ratio 16 (6-26) Glucose 130 H (70-105) mg/dL Calculated Osmolality 263 L (280-300) Calcium 8.6 (8.6-10.3) mg/dL Total Bilirubin 0.3 (0.3-1.0) mg/dL Direct Bilirubin 0.1 (0.0-0.2) mg/dL Indirect Bilirubin 0.2 (0.0-1.2) mg/dL AST 18 (13-39) Units/L ALT 12 (7-52) Units/L Alkaline Phosphatase 74 (34-104) Units/L Creatine Kinase 142 (30-223) Units/L Troponin I < 0.03 (< 0.04) ng/mL Serum Total Protein 6.3 L (6.4-8.9) g/dL Albumin 3.3 L (3.5-5.7) g/dL Globulin 3.0 (2.4-3.5) g/dL Albumin/Globulin Ratio 1.1 (1.1-2.2) Lipase 7 L (11-82) Units/L Urine Color (Yellow) Urine Clarity (Clear) Urine pH (5.0-8.0) pH Units Ur Specific [place] (1.010-1.025) Urine Protein (Neg-Trace) mg/dL Urine Glucose (UA) (Normal) mg/dL Urine Ketones (Negative) mg/dL Urine Blood (Negative) Urine Nitrite (Negative) Urine Bilirubin (Negative) Urine Urobilinogen (Normal) mg/dL Ur Leukocyte Esterase (Negative) Ur Culture Indicated? (NO) 05/27/18 Range/Units 17:23 WBC (4.3-11.1) K/mcL RBC (4.19-5.50) M/mcL Hgb (12.9-16.9) g/dL Hct (37.5-50.1) % MCV (83.0-100.0) fL MCH (28.0-33.3) pg MCHC (31.6-35.5) g/dL RDW (11.5-14.5) % Plt Count (140-400) K/mcL MPV (9.4-12.4) fL PT (9.4-12.1) Seconds INR APTT (26.0-36.0) Seconds Sodium (136-145) mEq/L Potassium (3.5-5.1) mEq/L Chloride (98-107) mEq/L Carbon Dioxide (23-29) mEq/L BUN (8-23) mg/dL Creatinine (0.70-1.30) mg/dL Est GFR ( Amer) (> 60) Est GFR (Non-Af Amer) (> 60) BUN/Creatinine Ratio (6-26) Glucose (70-105) mg/dL Calculated Osmolality (280-300) Calcium (8.6-10.3) mg/dL Total Bilirubin (0.3-1.0) mg/dL Direct Bilirubin (0.0-0.2) mg/dL Indirect Bilirubin (0.0-1.2) mg/dL AST (13-39) Units/L ALT (7-52) Units/L Alkaline Phosphatase (34-104) Units/L Creatine Kinase (30-223) Units/L Troponin I (< 0.04) ng/mL Serum Total Protein (6.4-8.9) g/dL Albumin (3.5-5.7) g/dL Globulin (2.4-3.5) g/dL Albumin/Globulin Ratio (1.1-2.2) Lipase (11-82) Units/L Urine Color Yellow (Yellow) Urine Clarity Clear (Clear) Urine pH 7.0 (5.0-8.0) pH Units Ur Specific [place] 1.021 (1.010-1.025) Urine Protein Negative (Neg-Trace) mg/dL Urine Glucose (UA) Normal (Normal) mg/dL Urine Ketones Negative (Negative) mg/dL Urine Blood Negative (Negative) Urine Nitrite Negative (Negative) Urine Bilirubin Negative (Negative) Urine Urobilinogen Normal (Normal) mg/dL Ur Leukocyte Esterase Negative (Negative) Ur Culture Indicated? NO (NO) - Radiology Data Radiology results reviewed: Yes I reviewed the patient's radiology results. Head CT 05/27/18 15:27 IMPRESSION: No acute intracranial abnormality. Diffuse atrophic changes with findings suggesting chronic microvascular ischemia Small left mastoid effusion, correlate for signs of infection Findings were discussed with Dee Dee Love at 3:53 pm on 05/27/2018. D/ / Kenny Baird MD / Kenny Baird MD Interpreting Provider: Kenny Baird MD - EKG Data EKG #1 EKG attestation: Yes I reviewed and interpreted this EKG. EKG results narrative: Normal sinus rhythm at a rate of 68. [place] interval is 173. QRS duration is 98. QTC is 447. QTC is 476. No signs of acute ischemia. No signs of acute ischemia. No significant change from previous EKG dated 03/08/2018. No signs of Brugada or WPW. Attestation Statement - Attestation Attestation: I, Shashi Villafuerte DO, examined this patient [id number] and my medical decision-making was reviewed with Dr. Kimi Love, Resident Physician. I agree with the documented findings, disposition and treatment plan as described except to the extent set forth below. Please see my progress notes for details.
[2018-05-27 15:50] LABS: Activated Partial Thrombo Time 35.1 Seconds (26.0-36.0)
[2018-05-27 16:03] LABS: BUN/Creatinine Ratio 16 (6-26); Blood Urea Nitrogen 15 mg/dL (8-23); Calcium 8.6 mg/dL (8.6-10.3); Carbon Dioxide 26 mEq/L (23-29); Chloride 90 mEq/L (98-107); Creatine Kinase 142 Units/L (30-223); Glucose 130 mg/dL (70-105); Osmolality,Calculated 263 (280-300); Sodium 125 mEq/L (136-145); eGFR For Non-African Americans > 60 (> 60)
[2018-05-27 16:05] LABS: Troponin I < 0.03 ng/mL (< 0.04)
--- NOTE | 2018-05-27 16:06 | Emergency Department Note ---
Disposition Clinical Impression: Otitis, Altered mental status, Hyponatremia, History of abdominal aortic aneurysm (AAA) Disposition: Admitted As Inpatient Condition: Fair [facility]nered Phys[facility] - Forms: ED Satisfaction Letter Time of Disposition: 18:42 General Adult HPI - General Chief complaint: ED Altered Mental Status Stated complaint: slurred speech/neuro Time Seen by Provider: 05/27/18 15:17 Source: family Limitations: no limitations - History of Present Illness Pain Scale: 0 - Related Data Home Medications Medication Instructions Recorded Confirmed Albuterol Sulfate [Albuterol 2 puff IH QID PRN 10/14/15 03/08/18 Inhaler] Aspirin Enteric Coated [Aspirin EC] 81 mg PO DAILY 10/14/15 03/08/18 Omeprazole [PriLOSEC] 20 mg PO DAILY 10/14/15 03/08/18 Simvastatin [Zocor] 20 mg PO HS 10/14/15 03/08/18 Meloxicam [Mobic] 7.5 mg PO DAILY 09/05/17 03/08/18 Roflumilast [Daliresp] 500 mcg PO DAILY 09/05/17 03/08/18 Budesonide/Formoterol 160/4.5 2 puff IH BIDR 03/08/18 03/08/18 [Symbicort 160/4.5] Ciprofloxacin/Dex *EAR* Susp 4 drop BOTH EARS BID 03/08/18 03/08/18 [Ciprodex *EAR* Susp] Ipratropium/Albuterol Neb [Duoneb] 3 ml IH Q6HR PRN 03/08/18 03/08/18 Metoprolol [Lopressor] 25 mg PO DAILY 03/08/18 03/08/18 hydroCHLOROthiazide 12.5 mg PO DAILY 03/08/18 03/08/18 [Hydrochlorothiazide] Allergies Allergy/AdvReac Type Severity Reaction Status Date / Time No Known Allergies Allergy Verified 04/05/18 15:06 Past Medical History - Past Medical History Medical history: Reports: myocardial infarction, hyperlipidemia, hypertension, valvular heart disease, COPD Surgical history: Reports: herniorrhaphy, knee replacement, angioplasty/stent Psychiatric history: Reports: bipolar - Social History Smoking Status: Former smoker Smokeless Tobacco Status: No Alcohol use: Reports: occasionally Drug use: Reports: none Physical Exam - General Limitations: no limitations General appearance: lethargic Course Vital Signs Temperature 97.6 F 05/27/18 15:19 Pulse Rate 58 05/27/18 15:19 Respiratory Rate 24 05/27/18 15:19 Blood Pressure 000/00 05/27/18 15:19 O2 Sat by Pulse Oximetry 100 05/27/18 15:19 Temperature 97.6 F 05/27/18 15:50 Pulse Rate 74 05/27/18 17:28 Respiratory Rate 15 05/27/18 17:28 Blood Pressure 133/71 05/27/18 17:28 O2 Sat by Pulse Oximetry 99 05/27/18 17:28 Oxygen Delivery Oxygen Delivery Room Air Medical Decision Making - Lab Data Result diagrams: 05/27/18 15:25 05/27/18 15:25 Lab Results 05/27/18 05/27/18 05/27/18 Range/Units 15:25 15:25 15:25 WBC 10.6 (4.3-11.1) K/mcL RBC 3.49 L (4.19-5.50) M/mcL Hgb 9.9 L (12.9-16.9) g/dL Hct 29.5 L (37.5-50.1) % MCV 84.5 (83.0-100.0) fL MCH 28.4 (28.0-33.3) pg MCHC 33.6 (31.6-35.5) g/dL RDW 14.0 (11.5-14.5) % Plt Count 336 (140-400) K/mcL MPV 8.7 L (9.4-12.4) fL PT 11.7 (9.4-12.1) Seconds INR 1.0 APTT 35.1 (26.0-36.0) Seconds Sodium 125 L (136-145) mEq/L Potassium 4.0 (3.5-5.1) mEq/L Chloride 90 L (98-107) mEq/L Carbon Dioxide 26 (23-29) mEq/L BUN 15 (8-23) mg/dL Creatinine 0.91 (0.70-1.30) mg/dL Est GFR ( Amer) > 60 (> 60) Est GFR (Non-Af Amer) > 60 (> 60) BUN/Creatinine Ratio 16 (6-26) Glucose 130 H (70-105) mg/dL Calculated Osmolality 263 L (280-300) Calcium 8.6 (8.6-10.3) mg/dL Total Bilirubin 0.3 (0.3-1.0) mg/dL Direct Bilirubin 0.1 (0.0-0.2) mg/dL Indirect Bilirubin 0.2 (0.0-1.2) mg/dL AST 18 (13-39) Units/L ALT 12 (7-52) Units/L Alkaline Phosphatase 74 (34-104) Units/L Creatine Kinase 142 (30-223) Units/L Troponin I < 0.03 (< 0.04) ng/mL Serum Total Protein 6.3 L (6.4-8.9) g/dL Albumin 3.3 L (3.5-5.7) g/dL Globulin 3.0 (2.4-3.5) g/dL Albumin/Globulin Ratio 1.1 (1.1-2.2) Lipase 7 L (11-82) Units/L Urine Color (Yellow) Urine Clarity (Clear) Urine pH (5.0-8.0) pH Units Ur Specific [place] (1.010-1.025) Urine Protein (Neg-Trace) mg/dL Urine Glucose (UA) (Normal) mg/dL Urine Ketones (Negative) mg/dL Urine Blood (Negative) Urine Nitrite (Negative) Urine Bilirubin (Negative) Urine Urobilinogen (Normal) mg/dL Ur Leukocyte Esterase (Negative) Ur Culture Indicated? (NO) 05/27/18 Range/Units 17:23 WBC (4.3-11.1) K/mcL RBC (4.19-5.50) M/mcL Hgb (12.9-16.9) g/dL Hct (37.5-50.1) % MCV (83.0-100.0) fL MCH (28.0-33.3) pg MCHC (31.6-35.5) g/dL RDW (11.5-14.5) % Plt Count (140-400) K/mcL MPV (9.4-12.4) fL PT (9.4-12.1) Seconds INR APTT (26.0-36.0) Seconds Sodium (136-145) mEq/L Potassium (3.5-5.1) mEq/L Chloride (98-107) mEq/L Carbon Dioxide (23-29) mEq/L BUN (8-23) mg/dL Creatinine (0.70-1.30) mg/dL Est GFR ( Amer) (> 60) Est GFR (Non-Af Amer) (> 60) BUN/Creatinine Ratio (6-26) Glucose (70-105) mg/dL Calculated Osmolality (280-300) Calcium (8.6-10.3) mg/dL Total Bilirubin (0.3-1.0) mg/dL Direct Bilirubin (0.0-0.2) mg/dL Indirect Bilirubin (0.0-1.2) mg/dL AST (13-39) Units/L ALT (7-52) Units/L Alkaline Phosphatase (34-104) Units/L Creatine Kinase (30-223) Units/L Troponin I (< 0.04) ng/mL Serum Total Protein (6.4-8.9) g/dL Albumin (3.5-5.7) g/dL Globulin (2.4-3.5) g/dL Albumin/Globulin Ratio (1.1-2.2) Lipase (11-82) Units/L Urine Color Yellow (Yellow) Urine Clarity Clear (Clear) Urine pH 7.0 (5.0-8.0) pH Units Ur Specific [place] 1.021 (1.010-1.025) Urine Protein Negative (Neg-Trace) mg/dL Urine Glucose (UA) Normal (Normal) mg/dL Urine Ketones Negative (Negative) mg/dL Urine Blood Negative (Negative) Urine Nitrite Negative (Negative) Urine Bilirubin Negative (Negative) Urine Urobilinogen Normal (Normal) mg/dL Ur Leukocyte Esterase Negative (Negative) Ur Culture Indicated? NO (NO) Attestation Statement - Attestation Attestation: I, Shashi Villafuerte DO, examined this patient [id number] and my medical dec ision-making was reviewed with Dr. Kimi Love, Resident Physician. I agree with the documented findings, disposition and treatment plan as described except to the extent set forth below. Please see my progress notes for details. 67-year-old male presents emergency room by family for evaluation of slurred speech. Patient has had slurred speech for approximately 2 weeks but has been progressively getting worse today. Patient was discharged from a long term facility after being seen and evaluated and treated for pneumonia as well as cardiothoracic evaluation for aortic and abdominal aneurysms. Patient has had a slow decline over the last several weeks with his health. Currently denying chest pain, shortness of breath. He had a persistent headache this today that was new. Denied any nausea vomiting. No fevers no chills. No diarrhea or symptoms. Patient otherwise is asymptomatic at this point. Patient was brought back to the bed possibly 10 minutes after triage. Initial stroke evaluation did not show any focal deficits outside of difficulty with speech ac cording to the family. They said this is similar to what his had over the last 2 weeks but is worse today. Patient has full range of motion of the upper and lower extremities. Cerebellar function appears to be intact. Patient has no acute extraocular muscle abnormalities. Pupils are equal round reactive. Oropharynx is patent. Trachea is midline. Lungs are clear. No pulsatile masses or lesions noted on evaluation the abdomen. Patient shows stable hemodynamics. Extremities appear to be normal. Concern is noted for the family about possible stroke. Timeframe of last known well is undifferentiated at this point. He is a progression of symptoms over 2 weeks but worse here over the last [address] completed along with stroke alert was called. Labs imaging will be resulted. CT angiography of the head neck and dissection study will be added on as well secondary the patient's history the aneurysms. The daughter said that last night he is been unable to get around the house and was crawling around on the floor coughing up whitish clear discharge. Patient family are both informed. Disposition pending full workup and treatment course. See detailed documentation of the physical exam, medical intervention, medical decision-making and disposition in the resident physician's note. No critical care pad the patient's treatment course at this time. [facility] has been contacted. 1530 [facility] neurologist evaluated the patient the bedside. Recommended CT angiography but obviously no TPA intervention. Patient's creatinine was low on the last evaluation so labs were completed prior to the imaging being ordered. CT angiography of the head and the neck along with dissection study will be completed this time considering the patient has a stable GFR. Fluids will be given. Aspirin will be started at this point. Patient is otherwise clinically stable 1815 Patient is refusing to be transferred to [facility]. Imaging modalities concerning for an issue with the internal carotid artery. Recommendation for MRI was given. No other acute findings noted at this time. The hospitalist Dr. Looneyi the case and felt comfortable acute and the patient here for imaging modalities to be completed and if positive then transfer the patient to the outside facility. Patient otherwise in no distress resting comfortably in the bed at this time with complete resolution of the symptoms. No medical intervention has been provided at this time. Disposition pending the full workup and treatment course. Patient will be monitored here in the emergency room until admission processes has been established.
[2018-05-27 16:24] LABS: Alanine Aminotransferase 12 Units/L (7-52); Albumin 3.3 g/dL (3.5-5.7); Albumin/Globulin Ratio 1.1 (1.1-2.2); Alkaline Phosphatase 74 Units/L (34-104); Aspartate Amino Transferase 18 Units/L (13-39); Bilirubin,Direct 0.1 mg/dL (0.0-0.2); Bilirubin,Indirect 0.2 mg/dL (0.0-1.2); Bilirubin,Total 0.3 mg/dL (0.3-1.0); Lipase 7 Units/L (11-82); Total Protein 6.3 g/dL (6.4-8.9)
[2018-05-27] MEDS ORDERED: Aspirin 81 MG TAB.CHEW PO STA (17:05)
[2018-05-27 17:33] LABS: Bilirubin,Urine Negative (Negative); Blood,Urine Negative (Negative); Clarity,Urine Clear (Clear); Color,Urine Yellow (Yellow); Glucose,Urine (UA) Normal (Normal); Ketones,Urine Negative (Negative); Leukocyte Esterase,Urine Negative (Negative); Nitrite,Urine Negative (Negative); Protein,Urine Negative (Neg-Trace); Specific Gravity,Urine 1.021 (1.010-1.025); Urobilinogen,Urine Normal (Normal)
[2018-05-27] MEDS ORDERED: cefTRIAXone 1,000 MG in Water for inj. (sterile) 20 ML 10 ML IVP ONE (17:50)
--- NOTE | 2018-05-27 19:22 | Internal Med History&Physical ---
Date of Encounter: 05/27/18 Time of Encounter: 19:22 Internal Medicine - H&P: HPI Chief complaint: Slurred Speech History of present illness: Mr. Winston is a 67 year old male with a PMH of COPD, AAA, coronary artery disease, aortic stenosis status post however who presents emergency room by family for evaluation of slurred speech. Patient has had slurred speech for a pproximately 2 weeks but has been progressively getting worse today. Patient was [facility] after being seen and evaluated and treated for pneumonia as well as cardiothoracic evaluation for aortic and abdominal aneurysms. Patient has had a slow decline over the last several weeks with his health. Patient was at bedside during my assessment states that his slurred speech is similar to what he has had over the last 2 weeks but is worse today. Currently denying any chest pain, shortness of breath. He still reports feeling congested and has a productive cough. He had a persistent headache this today that was new associated with nausea. Denied any vomiting. No fevers no chills. No diarrhea or symptoms. Patient otherwise is asymptomatic at this point. Initial stroke evaluation did not show any focal deficits outside of difficulty with speech according to the family. [facility] neurologist evaluated the patient the bedside and recommended CT angiography. CT angiogram neck showed significant narrowing of the distal left cervical internal carotid artery. Patient refused transfer to [facility] and the patient was subsequent admitted to our hospital. On my assessment patient was asymptomatic lying in bed in no acute distress. Vitals were stable. Appears to be back at baseline per family. Labs notable for hyponatremia of 125. CTA of the abdomen did show an interval enlargement in his AAA from 4.8- 5.1 cm. Past Med Surg Social Fam HX - Past Medical History Medical history: myocardial infarction, hyperlipidemia, hypertension, valvular heart disease, COPD Additional medical history: BLACK LUNG Psychiatric history: bipolar - Past Surgical History Surgical History: herniorrhaphy, knee replacement, angioplasty/stent Additional surgical history: AAA. L shoulder. b/l knees - Social History Smoking Status: Former smoker Smokeless Tobacco Status: No Alcohol use: occasionally Drug use: none - Family History Mother Living Status: Father Living Status: Hx Family Respiratory Disorders: Yes Internal Medicine - H&P: Meds Albuterol Sulfate [Albuterol Inhaler] 2 puff IH QID PRN 10/14/15 [History] Aspirin Enteric Coated [Aspirin EC] 81 mg PO DAILY 10/14/15 [History] Omeprazole [PriLOSEC] 20 mg PO DAILY 10/14/15 [History] Meloxicam [Mobic] 7.5 mg PO BID 09/05/17 [History] Roflumilast [Daliresp] 500 mcg PO DAILY 09/05/17 [History] Budesonide/Formoterol 160/4.5 [Symbicort 160/4.5] 2 puff IH BID 03/08/18 [History] Ipratropium/Albuterol Neb [Duoneb] 3 ml IH QID PRN 03/08/18 [History] Metoprolol [Lopressor] 25 mg PO DAILY 03/08/18 [History] hydroCHLOROthiazide [Hydrochlorothiazide] 12.5 mg PO DAILY 03/08/18 [History] Nitroglycerin [Nitrostat] 0.4 mg SL PRN PRN 05/27/18 [History] Acetaminophen [Tylenol] 500 mg PO TID PRN 05/28/18 [History] BuPROPion [Wellbutrin] 37.5 mg PO DAILY tablet 05/28/18 [Rx] Gabapentin [Neurontin] 300 mg PO TID 05/28/18 [History] Ibuprofen [Ibu] 600 mg PO TID 05/28/18 [History] Simvastatin [Zocor] 20 mg PO DAILY 05/28/18 [History] Tizanidine HCl 4 mg PO Q8H PRN 05/28/18 [History] predniSONE [PredniSONE] 5 mg PO DAILY 05/28/18 [History] Allergy/AdvReac Type Severity Reaction Status Date / Time No Known Allergies Allergy Verified 05/28/18 11:01 All Systems PM: A 10-system review of systems was performed and is negative for pertinent findings except as documented above in the HPI. - Constitutional Constitutional: no chills, no fever(s), no night sweats - EENT Eyes: no change in vision, no discharge, no pain, no photophobia Ears: no ear discharge, no ear pain, no tinnitus Nose, mouth and throat: no dysphagia, no nasal discharge, no neck pain, no sore throat - Cardiovascular Cardiovascular ROS IM: no chest pain, no diaphoresis, no dyspnea, no lightheadedness, no palpitations, no syncope - Respiratory Respiratory: no cough, no dyspnea, no wheezing, no excessive phlegm production - Gastrointestinal Gastrointestinal: no abdominal pain, no diarrhea, no hematemesis, no hematochezia, no melena, no nausea, no vomiting - Musculoskeletal Musculoskeletal ROS IM: no numbness, no tingling - Integumentary Integumentary IM: no rash, no unusual bruising - Neurological Neurological ROS: no confusion, no convulsions, no focal weakness, no numbness, no tingling, no tremor(s) - Hematologic/Lymphatic Hematologic/Lymphatic: no easy bruising - Constitutional Vitals: Temp Pulse Resp BP Pulse Ox 97.6 F 74 15 133/71 99 05/27/18 15:50 05/27/18 17:28 05/27/18 17:28 05/27/18 17:28 05/27/18 17:28 Exam: General: Alert and oriented 3 Skin:Normal color, no rash, no lesions. HEENT:EOM, pupils equal, round and reactive. Cardiovascular:Normal S1 & S2, no rubs, murmurs or gallops. No JVD. Pulse regular. Lungs:Normal breath sounds, no wheezes or crackles. Abdomen:Soft, non-tender, no rigidity. Extremities:No deformity, no edema or tenderness, no joint swelling or clubbing. Neurological:Normal cognition and motor skills. Cranial nerves II through XII intact. No evidence of pronator drift. Sensation intact. Muscle strength 5 out of 5 in the upper and lower extremities. Pulses:Carotid and radial pulses normal +2. Rest of the physical exam is non contributory Internal Med - H&P Results - Labs CBC & Chem 7: 05/28/18 06:17 05/28/18 06:17 Labs: Short CBC 05/27/18 Range/Units 15:25 WBC 10.6 (4.3-11.1) K/mcL Hgb 9.9 L (12.9-16.9) g/dL Hct 29.5 L (37.5-50.1) % Plt Count 336 (140-400) K/mcL BMP 05/27/18 15:25 Sodium 125 L Potassium 4.0 Chloride 90 L Carbon Dioxide 26 BUN 15 Creatinine 0.91 Glucose 130 H Calcium 8.6 Cardiac Enzymes 05/27/18 Range/Units 15:25 Troponin I < 0.03 (< 0.04) ng/mL Liver Function 05/27/18 Range/Units 15:25 Total Bilirubin 0.3 (0.3-1.0) mg/dL Direct Bilirubin 0.1 (0.0-0.2) mg/dL AST 18 (13-39) Units/L ALT 12 (7-52) Units/L Alkaline Phosphatase 74 (34-104) Units/L Albumin 3.3 L (3.5-5.7) g/dL Urine 05/27/18 Range/Units 17:23 Urine Color Yellow (Yellow) Urine Clarity Clear (Clear) Urine pH 7.0 (5.0-8.0) pH Units Ur Specific [place] 1.021 (1.010-1.025) Urine Protein Negative (Neg-Trace) mg/dL Urine Glucose (UA) Normal (Normal) mg/dL - Impressions ITS Impressions Chest X-Ray 05/27/18 15:27 IMPRESSION: 1. No acute cardiopulmonary disease. 2. Status post TAVR. D/ / 05/27/2018 16:17:09 Tsering Castro MD / sally Interpreting Provider: Tsering Castro MD Head CT 05/27/18 15:27 IMPRESSION: No acute intracranial abnormality. Diffuse atrophic changes with findings suggesting chronic microvascular ischemia Small left mastoid effusion, correlate for signs of infection Findings were discussed with Dee Dee Love at 3:53 pm on 05/27/2018. D/ / Kenny Baird MD / Kenny Baird MD Interpreting Provider: Kenny Baird MD Dissection 05/27/18 15:28 IMPRESSION: 1. 5.1 cm AAA Recommend vascular consultation and follow-up every 6 months. Reference: J Vasc Surg 2009 Oct;50(4 Suppl):S2-49. 2. Mild calcific atherosclerosis. 3. Diverticulosis coli without CT evidence of acute diverticulitis. 4. Small hiatal hernia. 5. Degenerative changes throughout the thoracic and lumbar spine with grade 1 degenerative anterolisthesis L5 on S1. D/ / Iker Roew / Iker Rowe Interpreting Provider: Iker Rowe Head CTA 05/27/18 15:28 IMPRESSION: Significant narrowing of the distal left cervical ICA with potential surrounding soft tissue abnormality. Otherwise, no flow limiting stenosis or branch occlusion detected within the head or neck. Recommend MRI of the neck with and without contrast for further evaluation. D/ / Anam Corona MD / Anam Corona MD Interpreting Provider: Anma Corona MD Neck CTA 05/27/18 15:28 IMPRESSION: Significant narrowing of the distal left cervical ICA with potential surrounding soft tissue abnormality. Otherwise, no flow limiting stenosis or branch occlusion detected within the head or neck. Recommend MRI of the neck with and without contrast for further evaluation. D/ / Anam Corona MD / Anam Corona MD Interpreting Provider: Anam Corona MD - Assessment and plan (1) Slurred speech Status: Acute Assessment and plan: Patient presents with one to two-week history of intermittent slurred speech which is gotten progressively worse today. Patient appears to be now at his baseline. He has no other focal deficits on my examination. CT of the head shows diffuse atrophic changes with findings suggesting chronic microvascular ischemia. Patient has a small left mastoid effusion, otherwise no acute intracranial abnormality. CTA of the neck shows significant narrowing of the distal left cervical ICA with potential surrounding soft tissue abnormality. Otherwise no flow-limiting stenosis or branch occlusion detected within the head or neck. Questionable TIA/CVA. Patient also has a pituitary adenoma which is currently being followed outpatient. He plans to have surgery at some point. -We will obtain MR a of the head and neck -Continue with neuro checks -Neurology consult -Case was discussed with Dr. Gomez. Given the location of the stenosis of the ICA, he recommends patient to be optimally managed on his medications. If he continues to have symptoms will need either interventional radiology or neurosurgery intervention. (2) Hyponatremia Status: Acute Assessment and plan: Hyponatremia with a sodium of 125 on initial evaluation. Last sodium in our records was 141. Family states that his sodium levels have been running low noting a previous sodium level of 121 that was assessed recently. Patient has dry mucous membranes though appears euvolemic. When talking to the family, there is suggestion of poor by mouth intake. Patient was given a fluid bolus in the ED. -We will obtain urine sodium, urine osmolality -We will obtain a repeat sodium level -Continue with gentle hydration and monitor. -Consider nephrology consult - (3) History of abdominal aortic aneurysm (AAA) Status: Chronic Assessment and plan: Patient is a history of abdominal aortic aneurysm. Infrarenal abdominal aortic aneurysm now measuring 5.1 cm. Previous imaging in August 2017 shows size to be 4.8 cm. Patient denies any abdominal pain. No evidence of pulsatile abdominal mass on examination. Currently hemodynamically stable -Discussed findings with Dr. Whittaker who was not concerned with the interval enlargement and recommends monitoring for now. (4) Coronary artery disease Status: Chronic Assessment and plan: History of coronary artery disease status -Into new with medical management for the patient's coronary artery disease Qualifiers: Coronary Disease-Associated Artery/Lesion type: [place] artery [place] vs. transplanted heart: [place] heart Associated angina: without angina Qualified Code(s): I25.10 - Atherosclerotic heart disease of [place] coronary artery without angina pectoris (5) DVT prophylaxis Status: Acute - Time Spent With Patient Total time spent is greater than 50% in coordination of care (as documented) at patient's floor/unit and/or counseling patient:
[2018-05-27] MEDS ORDERED: Naloxone 0.4 MG/ML INJ IVP PRN (19:24)
[2018-05-27] MEDS ORDERED: 0.9 % Sodium Chloride 1,000 ML IVC SCH (21:00)
[2018-05-27 22:14] LABS: BUN/Creatinine Ratio 14 (6-26); Blood Urea Nitrogen 12 mg/dL (8-23); Calcium 8.7 mg/dL (8.6-10.3); Carbon Dioxide 24 mEq/L (23-29); Chloride 93 mEq/L (98-107); Glucose 93 mg/dL (70-105); Osmolality,Calculated 263 (280-300); Potassium 4.3 mEq/L (3.5-5.1); Sodium 127 mEq/L (136-145); eGFR For Non-African Americans > 60 (> 60)
[2018-05-28] MEDS ORDERED: Ipratropium/Albuterol Neb 3 ML IH PRN (01:24)
[2018-05-28] MEDS ORDERED: Nitroglycerin 0.4 MG TAB.SUBL SL PRN (01:24)
[2018-05-28 02:06] LABS: Prothrombin Time 11.7 Seconds (9.4-12.1)
[2018-05-28] MEDS: Ibuprofen 600 MG TABLET PO PRN ×3 (02:10→14:44)
[2018-05-28 02:18] LABS: Alanine Aminotransferase 12 Units/L (7-52); Albumin 3.6 g/dL (3.5-5.7); Albumin/Globulin Ratio 1.1 (1.1-2.2); Alkaline Phosphatase 84 Units/L (34-104); Aspartate Amino Transferase 16 Units/L (13-39); BUN/Creatinine Ratio 13 (6-26); Bilirubin,Total 0.3 mg/dL (0.3-1.0); Blood Urea Nitrogen 11 mg/dL (8-23); Calcium 8.9 mg/dL (8.6-10.3); Carbon Dioxide 24 mEq/L (23-29); Chloride 92 mEq/L (98-107); Cholesterol 135 mg/dL (< 200); Globulin 3.3 g/dL (2.4-3.5); Glucose 90 mg/dL (70-105); HDL Cholesterol 66 mg/dL (40-59); LDL Cholesterol,Calculated 54 mg/dL (0-99); Osmolality,Calculated 267 (280-300); Potassium 4.2 mEq/L (3.5-5.1); Sodium 129 mEq/L (136-145); Total Protein 6.9 g/dL (6.4-8.9); Triglycerides 76 mg/dL (< 150); eGFR For Non-African Americans > 60 (> 60)
[2018-05-28 02:19] LABS: Troponin I < 0.03 ng/mL (< 0.04)
[2018-05-28 03:35] LABS: Thyroid Stimulating Hormone 1.908 mcIU/mL (0.340-5.600)
[2018-05-28 07:31] LABS: Basophils # 0.1 K/mcL (0.0-0.2); Basophils % 0.9 %; Eosinophils # 0.3 K/mcL (0.0-0.6); Eosinophils % 2.7 %; Hematocrit 31.1 % (37.5-50.1); Hemoglobin 10.3 g/dL (12.9-16.9); Immature Granulocytes % 0.6 % (0-4); Lymphocytes % 9.6 %; Mean Corpuscular HGB Conc 33.1 g/dL (31.6-35.5); Mean Corpuscular Hemoglobin 27.8 pg (28.0-33.3); Mean Corpuscular Volume 83.8 fL (83.0-100.0); Monocytes # 0.9 K/mcL (0.0-1.3); Monocytes % 8.9 %; Platelet Count 337 K/mcL (140-400); Red Blood Count 3.71 M/mcL (4.19-5.50); Red Cell Distribution Width 14.3 % (11.5-14.5); Segmented Neutrophils % 77.3 %
[2018-05-28 07:56] LABS: BUN/Creatinine Ratio 12 (6-26); Blood Urea Nitrogen 10 mg/dL (8-23); Calcium 9.1 mg/dL (8.6-10.3); Carbon Dioxide 23 mEq/L (23-29); Chloride 95 mEq/L (98-107); Glucose 138 mg/dL (70-105); Osmolality,Calculated 265 (280-300); Sodium 127 mEq/L (136-145); eGFR For Non-African Americans > 60 (> 60)
[2018-05-28] MEDS ORDERED: (Roflumilast [Daliresp] 500 MCG) PO SCH (09:00)
[2018-05-28] MEDS ORDERED: predniSONE 5 MG TABLET PO SCH (09:00)
[2018-05-28] MEDS ORDERED: Aspirin Enteric Coated 81 MG Tablet PO SCH (09:00)
[2018-05-28] MEDS ORDERED: hydroCHLOROthiazide 25 MG TABLET PO SCH (09:00)
[2018-05-28] MEDS: Gabapentin 300 MG CAPSULE PO SCH ×2 (09:09→14:44)
--- NOTE | 2018-05-28 09:30 | Neurology - Consult Note ---
<Stacy Kennedy I - Last Filed: 05/28/18 13:14> Date of Encounter: 05/28/18 Assessment and Plan (1) Slurred speech Current Visit: Yes Status: Acute Pt was seen and examined, my medical decision was reviewed with the Lamine Romo CNP , I agree with the documented findings, disposition and treatment plan, as described except to the extent set forth below. Patient was admitted earlier with slurred speech without any focal lateralizing sign on exam seems to be back to his baseline MRI of the brain did not reveal any ischemia. He did noted to have a severe focal narrowing of the left ICA in the cervical segment potentially could be the risk factor and cause of the stroke. Currently he is on aspirin and Zocor perhaps may benefit from vascular surgery evaluation though to be difficult to have any intervention then stenosis with up and higher cervical area. Suggest to continue on antiplatelet therapy along with statin Await results of echocardiogram Other treatment is as per primary team Stacy Kennedy MD (2) Carotid stenosis, left Current Visit: Yes Status: Chronic (3) Generalized headaches Current Visit: Yes Status: Acute History of Present Illness HPI: Mr. Winston is a 67 year old male Medications and Allergies Albuterol Sulfate [Albuterol Inhaler] 2 puff IH QID PRN 10/14/15 [History] Aspirin Enteric Coated [Aspirin EC] 81 mg PO DAILY 10/14/15 [History] Omeprazole [PriLOSEC] 20 mg PO DAILY 10/14/15 [History] Meloxicam [Mobic] 7.5 mg PO BID 09/05/17 [History] Roflumilast [Daliresp] 500 mcg PO DAILY 09/05/17 [History] Budesonide/Formoterol 160/4.5 [Symbicort 160/4.5] 2 puff IH BID 03/08/18 [History] Ipratropium/Albuterol Neb [Duoneb] 3 ml IH QID PRN 03/08/18 [History] Metoprolol [Lopressor] 25 mg PO DAILY 03/08/18 [History] hydroCHLOROthiazide [Hydrochlorothiazide] 12.5 mg PO DAILY 03/08/18 [History] Nitroglycerin [Nitrostat] 0.4 mg SL PRN PRN 05/27/18 [History] Acetaminophen [Tylenol] 500 mg PO TID PRN 05/28/18 [History] BuPROPion [Wellbutrin] 37.5 mg PO DAILY tablet 05/28/18 [Rx] Gabapentin [Neurontin] 300 mg PO TID 05/28/18 [History] Ibuprofen [Ibu] 600 mg PO TID 05/28/18 [History] Simvastatin [Zocor] 20 mg PO DAILY 05/28/18 [History] Tizanidine HCl 4 mg PO Q8H PRN 05/28/18 [History] predniSONE [PredniSONE] 5 mg PO DAILY 05/28/18 [History] Allergy/AdvReac Type Severity Reaction Status Date / Time No Known Allergies Allergy Verified 05/28/18 11:01 All Systems: The remainder of the systems were reviewed and are negative Physical Examination - Vital Signs Vital Signs: Initial Vital Signs Temp Pulse Resp BP Pulse Ox 97.6 F 58 24 000/00 100 05/27/18 15:19 05/27/18 15:19 05/27/18 15:19 05/27/18 15:19 05/27/18 15:19 Results - Laboratory Findings CBC and BMP: 05/28/18 06:17 05/28/18 06:17 Abnormal lab findings: Abnormal lab results RBC 3.71 M/mcL (4.19-5.50) L 05/28/18 06:17 Hgb 10.3 g/dL (12.9-16.9) L 05/28/18 06:17 Hct 31.1 % (37.5-50.1) L 05/28/18 06:17 MCH 27.8 pg (28.0-33.3) L 05/28/18 06:17 MPV 9.0 fL (9.4-12.4) L 05/28/18 06:17 Sodium 127 mEq/L (136-145) L 05/28/18 06:17 Chloride 95 mEq/L (98-107) L 05/28/18 06:17 Glucose 138 mg/dL (70-105) H 05/28/18 06:17 Calculated Osmolality 265 (280-300) L 05/28/18 06:17 HDL Cholesterol 66 mg/dL (40-59) H 05/28/18 01:46 Lipase 7 Units/L (11-82) L 05/27/18 15:25 Consult Discharge Plan - Plan Instructions: Abdominal Aortic Aneurysm (DC), Carotid Artery Disease (DC), Fall Prevention for the Older Adult, Exhibits Coordinator (GEN) Additional Instructions: Follow-up appointments: If there is not an appointment listed below, please call your physician and schedule a follow-up appointment. If you have congestive heart failure and your symptoms return, make an appointment with your physician. Medication List: Carry an up to date list of medications you are taking at all time. We have given you an updated medication list including any new medications that you have been prescribed. Please provide that list to your primary provider Symptoms: If your condition changes or you experience any of the following symptoms, notify your physician immediately: Unusual or worsening pain, fever, persistent nausea and vomiting, bleeding, increase in swelling (especially in your legs), sudden weight gain, extreme dizziness, chest pain, increased drainage or redness from a wound or incision. Go to the emergency department if you experience a problem with breathing. Weights: If you have a history of swelling or shortness of breath, weigh yourself daily and notify your physician if you have a weight gain of two or more pounds in one day or 5 or more pounds in a week. If you experience any of the warning signs for stroke: Sudden numbness or weakness of the face, arm or leg; especially on one side of the body, sudden confusion, trouble speaking or understanding, sudden trouble seeing in one or both eyes, sudden trouble walking, dizziness, loss of balance or coordination, sudden sever headache with no cause; Call 911 or go to the emergency room. Stroke is a medical emergency. Some risk factors for stroke: Age, cigarette smoking, diabetes, excessive alcohol consumption, family history, high blood pressure, overweight, physical inactivity, prior stroke, heart attack, diagnosis of carotid artery stenosis or other artery disease. If you smoke, STOP: Smoking or tobacco use significantly increases your risk of heart and lung disease. Your chance of disease greatly increases if you continue to smoke. For more information, call the [place] tobacco quit line for smoking cessation 923-BWUZ-EBP ( ) Referrals: [facility] [Other] - 06/14/18 10:00 am Chegn Garcia MD [Partnered Physician] - (Follow up appointment has be en requested. Office will call with date and time of appointment. ) [place],PCP [Primary Care Provider] - 06/05/18 10:30 am <Lamine Romo - Last Filed: 05/28/18 15:10> Date of Encounter: 05/28/18 Time of Encounter: 08:53 Assessment and Plan (1) Slurred speech Current Visit: Yes Status: Acute Neurology consulted with concerns for dysarthria. Per my review today he does not have dysarthria, neuro exam is non focal and non lateralizing. Mri of the brain is negative for acute ischemic findings; he has chronic ischemic changes and a sellar/supracellar mass which is likely a meningioma. MRA head and neck did reveal significant severe focal narrowing left ICA distal to the cervical segment. My recommendations this time include proceeding with echocardiogram, continuing aspirin and Zocor and consulting Vascular Surgery for evaluation of MRA findings. (2) Generalized headaches Current Visit: Yes Status: Chronic Generalized headaches since November of 2017 He is reporting frequent occipital headaches without radiation He reports that the headaches are distress but not particularly debilitating No prior h/o headaches in the past Known pituitary macroadenoma; follows with [facility] MRI findings today reveal the same a 19mm pituitary adenoma however he has no other structural causes for headaches He does note taking daily Tylenol and Ibuprofen Consider rebound headaches as cause D/w patient avoiding daily NSAID use (3) Carotid stenosis, left Current Visit: Yes Status: Acute MRA reveals left internal carotid stenosis. Vascular surgery consulted; thank you, recommendations appreciated. Has known sellar mass in the region of the stenosis; follows with [facility]. Pending f[facility]u appointment at [facility]. Not a surgical candidate. History of Present Illness Chief complaint: slurred speech HPI: Mr. Winston is a 67 year old male with a PMH of CAD, aortic stenosis, HLD, HTN. Neurology has been consulted with concerns for slurred speech. All information obtained from chart review and patient report. The patient reports that for the last two months he has had occipital headaches and slurred speech. He notes that approximately 2 weeks ago the slurred speech began getting progressively worse. Additionally, he notes that in November of 2017 he began to develop posterior headaches. He denies any progression of the headaches but reports them as constant and occurring most days of the month. He denies having any h/a history. Previous neuro imaging in 2017 did not identify any acute cause of headaches. He reports that he manages them with daily Tylenol and NSAIDS. In regards to his slurred speech concerns he denies any visual changes, dizziness, disequalibrium, neck pain/stiffness, confusion, memory impairment, parasthesias, hemiplegia, focal weakness, or hemiparesis. Today per my evaluation his speech does not seem garbled or slurred however, he is edentulous and this may be somewhat impacting speech quality. Otherwise he has no obvious focal or lateralizing deficits. Per my review of his MRI/MRA he has chronic small vessel ischemic changes without any acute ischemia or acute abnormalities. He does have a sellar and suprasellar mass which appears to most likely be a meningioma. The MRA exhibits severe left ICA narrowing involving the distal cervical segment. Past Med Surg Social Fam HX - Past Medical History Medical history: myocardial infarction, hyperlipidemia, hypertension, valvular heart disease, COPD Additional medical history: BLACK LUNG Psychiatric history: bipolar - Past Surgical History Surgical History: herniorrhaphy, knee replacement, angioplasty/stent Additional surgical history: AAA. L shoulder. b/l knees - Social History Smoking Status: Former smoker Smokeless Tobacco Status: No Alcohol use: occasionally Drug use: none - Family History Mother Living Status: Father Living Status: Hx Family Respiratory Disorders: Yes All Systems: The remainder of the systems were reviewed and are negative Review of Systems: REVIEW OF SYSTEMS GENERAL: Negative for any nausea, vomiting, fevers, chills, or weight loss, fatigue NEUROLOGIC: Negative for any visual changes, facial asymmetry, dysphagia, hemiparesis, hemisensory deficits, vertigo, ataxia, seizures, attention difficulties, memory impairments POSITIVE: Dysarthria PSYCH: agitation/irritability, anxiety, SI/HI HEENT: Negative for any head trauma, neck trauma, neck stiffness, photophobia, phonophobia, voice changes tinnitus, ear discharge or fullness. POSITIVE: Intermittent ear pain/pressure CARDIAC: Negative for any chest pain, dyspnea on exertion, HTN, peripheral edema. GASTROINTESTINAL: Negative for any abdominal pain, nausea, vomiting, GENITOURINARY: Negative for any dysuria, hematuria, incontinence. ENDOCRINE: Thyroid trouble, heat/cold intolerance, excessive sweating, thirst, hunger MUSCULOSKELETAL: Joint pain, stiffness, loss of strength (bilateral/unilateral), arthritis (mono or poly) Joint swelling (mono or poly), muscle pain/swelling, POSITIVE: Decreased activity tolerance Physical Examination - Vital Signs Vital Signs: Initial Vital Signs Temp Pulse Resp BP Pulse Ox 97.6 F 58 24 000/00 100 05/27/18 15:19 05/27/18 15:19 05/27/18 15:19 05/27/18 15:19 05/27/18 15:19 - Exam Exam: Examination: General Examination: *CONSTITUTIONAL: appears older than stated age *GENERAL APPEARANCE OF PATIENT appropriate hygiene *EYES: pupils equal, round, reactive to light and accommodation, conjunctiva clear without masses or ulcerations, fundi normal. *CARDIOVASCULAR RRR, S1, S2, no mumurs, rubs, or gallops, no peripheral edema, distal temperature normal, dorsalis pedis pulses normal. Musculoskeletal: *GAIT AND STATION normal, with normal Romberg testing, no abnormalities such as broad base gait or spasticity *ASSESSMENT OF MUSCLE STRENGTH IN THE UPPER AND LOWER EXTREMITIES bilateral deltoid, bicep, tricep, supervisor evaporator strength, hip flexors ,anterior tibialis, dorsoflexion of the foot 4/5 *MUSCLE TONE IN THE UPPER AND LOWER EXTREMITIES normal. No abnormal movements, fasciculations or atrophy identified. Neurological: *ORIENTATION to time, place, situation, and person *RECURRENT AND REMOTE MEMORY intact *ATTENTION AND CONCENTRATION are normal *LANGUAGE FUNCTION no significant aphasia or dysarthia was noted. *FUND OF KNOWLEDGE aware of current events, past history, vocabulary *MENTAL attention span and concentration normal, able to follow commands and participate in exam appropriately. *CN II optic fundi were normal, no papilledema noted. *CN III,IV, PERRLA extraocular eye movements were full, no nystagmus and no ptosis noted. *CN V shows normal sensation and jaw opens symmetrically. *CN VII shows normal facial movement symmetrically, upper and lower bilaterally. *CN VIII shows no significant hearing loss on examination in the office. *CN IX,,X palate elevated symmetrically and normal gag reflex was noted. *CN XI normal strength in the sternocleidomastoid muscles, symmetrical shoulder shrugging. *CN XII tongue protruded in the midline, with normal strength and movement. *SENSORY EXAMINATION light touch intact *REFLEXES: deep tendon reflexes were normal and symmetrical , grade 2/4 diffusely, no pathological reflexes were noted. *CEREBELLAR TESTING normal finger to nose, heel/knee/reagan, weakness with ambulation but no gait ataxia or disequilibrium *PAIN LEVEL 0/10 Results - Laboratory Findings CBC and BMP: 05/28/18 06:17 05/28/18 06:17 Abnormal lab findings: Abnormal lab results RBC 3.71 M/mcL (4.19-5.50) L 05/28/18 06:17 Hgb 10.3 g/dL (12.9-16.9) L 05/28/18 06:17 Hct 31.1 % (37.5-50.1) L 05/28/18 06:17 MCH 27.8 pg (28.0-33.3) L 05/28/18 06:17 MPV 9.0 fL (9.4-12.4) L 05/28/18 06:17 Sodium 127 mEq/L (136-145) L 05/28/18 06:17 Chloride 95 mEq/L (98-107) L 05/28/18 06:17 Glucose 138 mg/dL (70-105) H 05/28/18 06:17 Calculated Osmolality 265 (280-300) L 05/28/18 06:17 HDL Cholesterol 66 mg/dL (40-59) H 05/28/18 01:46 Lipase 7 Units/L (11-82) L 05/27/18 15:25
[2018-05-28] MEDS ORDERED: Budesonide/Formoterol 160/4.5 1 PUFF INH IH SCH (10:00)
[2018-05-28 11:28] VITALS: BP 133/78
--- NOTE | 2018-05-28 12:46 | Vascular/Endovasc Consult Note ---
Date of Encounter: 05/28/18 Time of Encounter: 11:50 Assessment and Plan (1) Carotid stenosis, left Current Visit: Yes Status: Chronic The pathophysiology and natural history of carotid stenosis was discussed the patient and all questions were answered. The patient presented with altered mental status. CT angiogram the head and neck revealed a left distal internal carotid artery stenosis. The lesion is not accessible for carotid artery. The patient is noted to have a surrounding mass in the recent stenosis. The mass may be causing extrinsic compression of the cervical internal carotid artery on the left. The patient states that he has previously been seen at [facility] regarding his brain mass. He reports that his scheduled follow-up with [facility] in the next few weeks for further discussion regarding his options. (2) AAA (abdominal aortic aneurysm) without rupture Current Visit: Yes Status: Chronic The pathophysiology and natural history of abdominal aortic aneurysms was discussed the patient and all questions were answered. The patient has a 5 cm infrarenal abdominal aortic aneurysm. He has known about his aneurysm for many years. He denies any new abdominal, flank or back pain. He declines intervention or further evaluation at this time. He will follow-up in vascular clinic in [address] scan. He was advised to continue medical attention for any acute onset abdominal, flank or back pain. (3) Coronary artery disease Current Visit: No Status: Chronic Qualifiers: Coronary Disease-Associated Artery/Lesion type: augustine artery Andreafski vs. transplanted heart: augustine heart Associated angina: without angina Qualified Code(s): I25.10 - Atherosclerotic heart disease of augustine coronary artery without angina pectoris - History of Present Illness Consult date: 05/28/18 Requesting physician: Winifred Patel Consult reason: carotid stenosis, abdominal aortic aneurysm Chief complaint: mental status changes History of present illness: Mr. Winston is a 67 year old male Past Med Surg Social Fam HX - Past Medical History Medical history: myocardial infarction, hyperlipidemia, hypertension, valvular heart disease, COPD Additional medical history: BLACK LUNG Psychiatric history: bipolar - Past Surgical History Surgical History: herniorrhaphy, knee replacement, angioplasty/stent Additional surgical history: AAA. L shoulder. b/l knees - Social History Smoking Status: Former smoker Smokeless Tobacco Status: No Alcohol use: occasionally Drug use: none - Family History Mother Living Status: Father Living Status: Hx Family Respiratory Disorders: Yes Medications and Allergies Albuterol Sulfate [Albuterol Inhaler] 2 puff IH QID PRN 10/14/15 [History] Aspirin Enteric Coated [Aspirin EC] 81 mg PO DAILY 10/14/15 [History] Omeprazole [PriLOSEC] 20 mg PO DAILY 10/14/15 [History] Meloxicam [Mobic] 7.5 mg PO BID 09/05/17 [History] Roflumilast [Daliresp] 500 mcg PO DAILY 09/05/17 [History] Budesonide/Formoterol 160/4.5 [Symbicort 160/4.5] 2 puff IH BID 03/08/18 [History] Ipratropium/Albuterol Neb [Duoneb] 3 ml IH QID PRN 03/08/18 [History] Metoprolol [Lopressor] 25 mg PO DAILY 03/08/18 [History] hydroCHLOROthiazide [Hydrochlorothiazide] 12.5 mg PO DAILY 03/08/18 [History] Nitroglycerin [Nitrostat] 0.4 mg SL PRN PRN 05/27/18 [History] Acetaminophen [Tylenol] 500 mg PO TID PRN 05/28/18 [History] Gabapentin [Neurontin] 300 mg PO TID 05/28/18 [History] Ibuprofen [Ibu] 600 mg PO TID 05/28/18 [History] Simvastatin [Zocor] 20 mg PO DAILY 05/28/18 [History] Tizanidine HCl 4 mg PO Q8H PRN 05/28/18 [History] predniSONE [PredniSONE] 5 mg PO DAILY 05/28/18 [History] Allergy/AdvReac Type Severity Reaction Status Date / Time No Known Allergies Allergy Verified 05/28/18 11:01 All Systems Review: The remainder of the systems were reviewed and are negative Exam Vital Signs, Last 4 Hours Temp Pulse Resp BP Pulse Ox 05/28/18 11:24 97.9 F 76 16 133/78 97 Consult Discharge Plan - Plan [facility]errals: [facility] [[facility] Care Provider[facility] -
--- NOTE | 2018-05-28 13:41 | Discharge Summary ---
<Kristin Kinney P - Last Filed: 05/28/18 15:04> - NOTES TO OUTPATIENT PROVIDER Notes to Outpatient Provider: The Patient will follow up with primary care provider within a week. The Patient will follow-up with neurologist within 23 weeks. The patient will follow u with vascular surgeon within 3-4 weeks. Orders not resulted at time of discharge: Pending orders 05/27/18 19:26 EV echocardiogram Routine Date of Encounter: 05/28/18 Time of Encounter: 13:30 - Discharge Diagnosis (1) Acute encephalopathy Priority: Primary Status: Acute (2) Hyponatremia Priority: Primary Status: Acute (3) Slurred speech Priority: Primary Status: Acute (4) AAA (abdominal aortic aneurysm) without rupture Priority: Secondary Status: Chronic (5) Carotid stenosis, left Priority: Primary Status: Acute (6) Generalized headaches Priority: Primary Status: Chronic Hospital course: Mr. Winston is a 67 year old male with a PMH of COPD, AAA, coronary artery disease, aortic stenosis status post however who presents emergency room by family for evaluation of slurred speech. Patient has had slurred speech for approximately 2 weeks but has been progressively getting worse for last a few days. Patient was discharged from a [facility] facility after being seen and evaluated and treated for pneumonia as well as cardiothoracic evaluation for aortic and abdominal aneurysms.CT angiogram neck showed significant narrowing of the distal left cervical internal carotid artery.CTA of the abdomen did show an interval enlargement in his AAA from 4.8-5.1 cm.MRI head :The left internal car otid artery is significantly narrowed as it enters the skull base. This artery quickly becomes more normal in caliber as it enters the cavernous segment. Otherwise, there is no focal significant narrowing.No acute intracranial abnormality .Mild small vessel ischemic changes. The patient was admitted for monitoring of neurological status and further workup. We consulted neurologist for slurred speech and vascular surgeon for stenosis of left internal carotid artery. There is no acute intervention from neurologist and vascular surgeon. The patient is getting progressively better since admission. His vitals are stable. We are planning to discharge him today and he will follow-up with primary care provider, neurologist and vascular surgeon in outpatient visit. - Time Spent with Patient Total time spent providing and/or coordinating discharge services: - Discharge Medications Home Medications: RX: Albuterol Sulfate [Albuterol Inhaler] 2 puff IH QID PRN 10/14/15 [History] RX: Aspirin Enteric Coated [Aspirin EC] 81 mg PO DAILY 10/14/15 [History] RX: Omeprazole [PriLOSEC] 20 mg PO DAILY 10/14/15 [History] RX: Meloxicam [Mobic] 7.5 mg PO BID 09/05/17 [History] RX: Roflumilast [Daliresp] 500 mcg PO DAILY 09/05/17 [History] RX: Budesonide/Formoterol 160/4.5 [Symbicort 160/4.5] 2 puff IH BID 03/08/18 [History] RX: Ipratropium/Albuterol Neb [Duoneb] 3 ml IH QID PRN 03/08/18 [History] RX: Metoprolol [Lopressor] 25 mg PO DAILY 03/08/18 [History] RX: hydroCHLOROthiazide [Hydrochlorothiazide] 12.5 mg PO DAILY 03/08/18 [History] RX: Nitroglycerin [Nitrostat] 0.4 mg SL PRN PRN 05/27/18 [History] RX: Acetaminophen [Tylenol] 500 mg PO TID PRN 05/28/18 [History] RX: BuPROPion [Wellbutrin] 37.5 mg PO DAILY tablet 05/28/18 [Rx] RX: Gabapentin [Neurontin] 300 mg PO TID 05/28/18 [History] RX: Ibuprofen [Ibu] 600 mg PO TID 05/28/18 [History] RX: Simvastatin [Zocor] 20 mg PO DAILY 05/28/18 [History] RX: Tizanidine HCl 4 mg PO Q8H PRN 05/28/18 [History] RX: predniSONE [PredniSONE] 5 mg PO DAILY 05/28/18 [History] Allergies/Adverse Reactions: Allergy/AdvReac Type Severity Reaction Status Date / Time No Known Allergies Allergy Verified 05/28/18 11:01 Date of admission: 05/27/18 19:59 [facility] care physician: [facility] Consults: 05/27/18 19:25 Consult to Neurology [CONS] Routine Consulting Provider: [facility] Reason for Consult: Slurred speech; COncern for CVA/TIA Call Completed: No 05/27/18 19:28 Consult to Vascular Surgery [CONS] Stat Consulting Provider: [facility] Reason for Consult: Enlargement and AAA hemicolon ICA stenosis Call Completed: No - Constitutional Vitals: Temp Pulse Resp BP Pulse Ox 97.9 F 76 16 133/78 97 05/28/18 11:24 05/28/18 11:24 05/28/18 11:24 05/28/18 11:24 05/28/18 11:24 General appearance: Present: A&O X 3, no acute distress, answers questions appropriately Exam: General: Alert and oriented 3 Skin:Normal color, no rash, no lesions. HEENT:EOM, pupils equal, round and reactive. Cardiovascular:Normal S1 & S2, no rubs, murmurs or gallops. No JVD. Pulse regular. Lungs:Normal breath sounds, no wheezes or crackles. Abdomen:Soft, non-tender, no rigidity. Extremities:No deformity, no edema or tenderness, no joint swelling or clubbing. Neurological:Normal cognition and motor skills. Cranial nerves II through XII intact. No evidence of pronator drift. Sensation intact. Muscle strength 5 out of 5 in the upper and lower extremities. Pulses:Carotid and radial pulses normal +2. Rest of the physical exam is non contributory. - Patient Status Disposition: Home Health Service Condition: Fair Functional capacity at discharge: uses cane/walker Overall status at discharge: patient is not back to baseline - Discharge Instructions Instructions: Abdominal Aortic Aneurysm (DC), Carotid Artery Disease (DC), Fall Prevention for the Older Adult, Service Inspector (GEN) Follow Up With: [facility] [Other] - 06/14/18 10:00 am () Cheng Garcia MD [Partnered Physician] - (Follow up appointment has been requested. Office will call with date and time of appointment. ) [facility] [Primary Care Provider] - 06/05/18 10:30 am Additional Instructions: Follow-up appointments: If there is not an appointment listed below, please call your physician and schedule a follow-up appointment. If you have congestive heart failure and your symptoms return, make an appointment with your physician. Medication List: Carry an up to date list of medications you are taking at all time. We have given you an updated medication list including any new medications that you have been prescribed. Please provide that list to your primary provider Symptoms: If your condition changes or you experience any of the following symptoms, notify your physician immediately: Unusual or worsening pain, fever, persistent nausea and vomiting, bleeding, increase in swelling (especially in your legs), sudden weight gain, extreme dizziness, chest pain, increased drainage or redness from a wound or incision. Go to the emergency department if you experience a problem with breathing. Weights: If you have a history of swelling or shortness of breath, weigh yourself daily and notify your physician if you have a weight gain of two or more pounds in one day or 5 or more pounds in a week. If you experience any of the warning signs for stroke: Sudden numbness or weakness of the face, arm or leg; especially on one side of the body, sudden confusion, trouble speaking or understanding, sudden trouble seeing in one or both eyes, sudden trouble walking, dizziness, loss of balance or coordination, sudden sever headache with no cause; Call 911 or go to the emergency room. Stroke is a medical emergency. Some risk factors for stroke: Age, cigarette smoking, diabetes, excessive alcohol consumption, family history, high blood pressure, overweight, physical inactivity, prior stroke, heart attack, diagnosis of carotid artery stenosis or other artery disease. If you smoke, STOP: Smoking or tobacco use significantly increases your risk of heart and lung disease. Your chance of disease greatly increases if you continue to smoke. For more information, call the [place] tobacco quit line for smoking cessation 8-235-QCUV-NOW ( ) - Diet and Activity Diet: low fat, low cholesterol <William Reddy - Last Filed: 05/28/18 15:40> Orders not resulted at time of discharge: Pending orders 05/27/18 19:26 EV echocardiogram Routine Date of Encounter: 05/28/18 - Discharge Diagnosis (1) Coronary artery disease Status: Chronic Qualifiers: Coronary Disease-Associated Artery/Lesion type: [place] artery [place] vs. transplanted heart: [place] heart Associated angina: without angina Qualified Code(s): I25.10 - Atherosclerotic heart disease of [place] coronary artery without angina pectoris (2) DVT prophylaxis Status: Acute (3) History of abdominal aortic aneurysm (AAA) Status: Chronic (4) Hyponatremia Status: Acute (5) Slurred speech Status: Acute Hospital course: Mr. Winston is a 67 year old male - Time Spent with Patient Total time spent providing and/or coordinating discharge services: Date of admission: 05/27/18 19:59 Primary care physician: [facility] Consults: 05/27/18 19:25 Consult to Neurology [CONS] Routine Consulting Provider: [facility] Reason for Consult: Slurred speech; COncern for CVA/TIA Call Completed: No 05/27/18 19:28 Consult to Vascular Surgery [CONS] Stat Consulting Provider: [facility] Reason for Consult: Enlargement and AAA hemicolon ICA stenosis Call Completed: No - Constitutional Vitals: Temp Pulse Resp BP Pulse Ox 97.9 F 76 16 133/78 97 05/28/18 11:24 05/28/18 11:24 05/28/18 11:24 05/28/18 11:24 05/28/18 11:24 - Attending Attestation I examined this patient and my medical decision-making was reviewed with the Resident Physician Dr. Kinney. I agree with the documented findings, disposition and treatment plan as described except to the extent set forth below. Mr. Winston is a 67 year old male with a PMH of COPD, AAA, coronary artery disease, s/ TAVR, AAA pt presented to ER for international slurred speech last 2 weeks which is progressively getting worse. Patient had CTA of the neck showed a significant narrowing of the distal left cervical internal carotid artery. His brain MRI did not show any acute infarction/no acute intracranial abnormality. He does have some lower and superscalar mass which is unchanged from previous images. Left internal carotid arteries significantly narrowed as it enters the skull base. Patient was evaluated by vascular surgery for his left carotid stenosis which might be due to surrounding mass. Patient wanted to follow up with [facility] regarding his brain mass. He does not want to be transferred from our hospital [facility] now. He would like to go home only and he is very adamant to transfer the [facility]. I did explain to him along with his , about the complications if he does not take care of his brain mass which can be potentially life-threatening. However he still adamant to go to [facility] now. He wants to take his chances and want to go home only. So will d/c him home today. Pt agree to f/u with Neuro / Vascular surgeon from [facility] as an out pt only.
--- NOTE | 2018-05-28 14:01 | Physician Discharge Referral ---
- Diagnosis (1) Acute encephalopathy Priority: Primary Status: Acute (2) Hyponatremia Priority: Primary Status: Acute (3) Slurred speech Priority: Primary Status: Acute (4) AAA (abdominal aortic aneurysm) without rupture Priority: Secondary Status: Chronic (5) Carotid stenosis, left Priority: Primary Status: Acute (6) Generalized headaches Priority: Primary Status: Chronic - Respiratory Orders Smoking Cessation: Smoking cessation has been advised. For more information, call the [place] Tobacco Quit Line at 5-044-RFLO-NOW. - Diet/Nutrition Diet/Nutrition Orders: Cardiac - Activity Activity Orders: Walker - Services Needed Following services are medically necessary services: Nursing, Physical Therapy, Occupational Therapy, Speech Therapy - Transfer Medications Home Medications: Albuterol Sulfate [Albuterol Inhaler] 2 puff IH QID PRN 10/14/15 [History] Aspirin Enteric Coated [Aspirin EC] 81 mg PO DAILY 10/14/15 [History] Omeprazole [PriLOSEC] 20 mg PO DAILY 10/14/15 [History] Meloxicam [Mobic] 7.5 mg PO BID 09/05/17 [History] Roflumilast [Daliresp] 500 mcg PO DAILY 09/05/17 [History] Budesonide/Formoterol 160/4.5 [Symbicort 160/4.5] 2 puff IH BID 03/08/18 [History] Ipratropium/Albuterol Neb [Duoneb] 3 ml IH QID PRN 03/08/18 [History] Metoprolol [Lopressor] 25 mg PO DAILY 03/08/18 [History] hydroCHLOROthiazide [Hydrochlorothiazide] 12.5 mg PO DAILY 03/08/18 [History] Nitroglycerin [Nitrostat] 0.4 mg SL PRN PRN 05/27/18 [History] Acetaminophen [Tylenol] 500 mg PO TID PRN 05/28/18 [History] BuPROPion [Wellbutrin] 37.5 mg PO DAILY tablet 05/28/18 [Rx] Gabapentin [Neurontin] 300 mg PO TID 05/28/18 [History] Ibuprofen [Ibu] 600 mg PO TID 05/28/18 [History] Simvastatin [Zocor] 20 mg PO DAILY 05/28/18 [History] Tizanidine HCl 4 mg PO Q8H PRN 05/28/18 [History] predniSONE [PredniSONE] 5 mg PO DAILY 05/28/18 [History] Allergies/Adverse Reactions: Allergy/AdvReac Type Severity Reaction Status Date / Time No Known Allergies Allergy Verified 05/28/18 11:01 Certification: Further, I certify that my clinical findings support that this patient is homebound (i.e. absences from home require considerable and taxing effort and are for medical reasons or taoist services or infrequently or short duration when for other reasons) because: Attestation: My signature below is to certify that this patient is under my care and that I, or nurse practitioner, or a physician's construction assistant working with me, has a [id number] encounter with this patient.
--- NOTE | 2018-05-30 20:34 | Electrocardiograph Report ---
[place] [id number] Test Date: 2018-05-27 Pat Name: Hollis Winston Department: [id number] Room: 3B21 Gender: M Doll Surgeon: : [id number] Requested By: Shashi Villafuerte Order Number: [id number] Reading MD: Erasmo Cook Measurements Intervals [place] Rate: 68 P: 38 FL: 173 QRS: -25 QRSD: 98 T: 51 QT: 447 QTc: 476 Interpretive Statements Sinus rhythm Abnormal R-wave progression, early transition Nonspecific ST-T abnormalities Borderline prolonged QT interval Electronically Signed On 05-30-2018 20:32:04 EST by Erasmo Cook
== END 2018-05-28 15:47 | disposition home health service (06) ==
LOC: 3BNU 15:05 → EMEROOARM 15:05 → SUATTDRO 19:59 → 3BNU 21:10
PROVIDERS: ADMIT Student in an Organized Health Care Education/Training Program; ATTEND Family Medicine